=== PATIENT | female | born 1965 | race Caucasian/White ===

== ENCOUNTER 2016-05-06 13:47 | Emergency (ER) | payer MEDICAID ==
[~2016-05-06] VITALS: Ht 144.8 cm; Wt 56.8 kg
[~2016-05-06 13:47] MED LIST: ALBU8.5H IH; BECL8.7A5 IH; CARB200T6 PO; LEVE500T53 PO; TOPI100 PO
[2016-05-06] MEDS ORDERED: PROM25SU61 RC (13:58)
[2016-05-06] MEDS ORDERED: FURO20 PO (13:58)
[2016-05-06] MEDS ORDERED: SODIUM CHLORIDE 0.9% 1,000 ML IV ONE (15:30)
[2016-05-06] MEDS ORDERED: HYDROmorphone 2 MG/ML SYRINGE IVP ONE ×2 (15:30→18:00)
[2016-05-06] MEDS ORDERED: ONDANSETRON HCL 4 MG/2 ML VIAL IVP ONE (15:30)
[2016-05-06] MEDS ORDERED: PHEN12S PR (15:32)
[2016-05-06 16:04] LABS: BASOPHILS % (AUTO) 0.6 % (0.0-2.0); EOSINOPHILS % (AUTO) 3.6 % (1.0-6.0); HEMATOCRIT 40.9 % (36-46); HEMOGLOBIN 13.6 g/dL (12.0-16.0); LYMPHOCYTES # (AUTO) 1.4 K/uL (1.0-4.8); LYMPHOCYTES % (AUTO) 39.6 % (22.0-44.0); MEAN CORPUSCULAR HEMOGLOBIN 30.7 pg (26.0-34.0); MEAN CORPUSCULAR HGB CONC 33.3 G/dL (31.0-37.0); MEAN CORPUSCULAR VOLUME 92 fL (80-100); MONOCYTES # (AUTO) 0.3 K/uL (0.1-1.0); MONOCYTES % (AUTO) 8.3 % (2.0-9.0); NEUTROPHILS # (AUTO) 1.7 K/uL (1.8-7.7); NEUTROPHILS % (AUTO) 47.9 % (40.0-70.0); PLATELET COUNT (AUTO) 288 K/uL (150-450); RED BLOOD CELL COUNT(AUTO) 4.44 MIL/uL (4.00-5.20); RED CELL DISTRIBUTION WIDTH 13.1 % (11.5-14.5); WHITE BLOOD COUNT (AUTO) 3.5 K/uL (4.5-11.0)
[2016-05-06 16:13] LABS: PROTHROMBIN TIME 10.6 SEC (9.4-11.6)
[2016-05-06 16:16] LABS: ANION GAP 10 mmol/L (8-16); CARBON DIOXIDE 25 mmol/L (22-29); CHLORIDE 106 mmol/L (98-107); CREATININE 0.87 mg/dL (0.60-1.30); GLOMERULAR FILTR. RATE CALC > 60 mL/min (>60); POTASSIUM 3.1 mmol/L (3.5-5.1); SODIUM SERUM 141 mmol/L (136-145); UREA NITROGEN, BLOOD 6 mg/dL (7-18)
[2016-05-06 16:21] LABS: ALANINE AMINOTRANSFERASE 18 U/L (12-78); ALBUMIN 3.4 g/dL (3.4-5.0); ASPARTATE AMINOTRANSFERASE 14 U/L (15-37); BILIRUBIN,TOTAL 0.1 mg/dL (0.1-1.0); TOTAL PROTEIN, SERUM 6.7 g/dL (6.4-8.2)
[2016-05-06 16:36] LABS: APPEARANCE,URINE CLEAR (CLEAR); GLUCOSE, URINE (UA) NEGATIVE (NEGATIVE); KETONES,URINE NEGATIVE (NEGATIVE); LEUKOCYTE ESTERASE ,URINE NEGATIVE (NEGATIVE); OCCULT BLOOD,URINE NEGATIVE (NEGATIVE); PH,URINE 8.5 (5.0-8.0); PROTEIN,URINE NEGATIVE (NEGATIVE)
[2016-05-06 16:40] LABS: ADD UA MICROSCOPIC NO
[2016-05-06] MEDS ORDERED: DiphenhydrAMINE HCL 50 MG/ML VIAL IM ONE (16:45)
[2016-05-06 19:14] VITALS: BP 113/81
== END 2016-05-06 19:14 | disposition home or self-care (01) ==
LOC: EMS 13:54
DX: K59.00 Constipation, unspecified (principal); Z88.0 Allergy status to penicillin; Z88.1 Allergy status to other antibiotic agents; Z88.5 Allergy status to narcotic agent; Z88.6 Allergy status to analgesic agent
CPT/HCPCS: 36415; 71010; 74176; 80053; 81003; 83690; 85025; 85610; 85730; 86850; 86900; 86901; 93005; 96361; 96372; 96374; 96375; 96376; 99285; J1170; J1200; J2405; J7030

== ENCOUNTER 2016-05-17 13:53 | Emergency (ER) | payer MEDICAID ==
[~2016-05-17] VITALS: Ht 144.8 cm; Wt 61.4 kg
[~2016-05-17 13:53] MED LIST changes: +FURO20 PO; +PHEN12S PR
[2016-05-17 14:52] LABS: BASOPHILS # (AUTO) 0.02 K/uL (0.00-0.20); BASOPHILS % (AUTO) 0.5 % (0.0-2.0); EOSINOPHILS # (AUTO) 0.22 K/uL (0.00-0.70); EOSINOPHILS % (AUTO) 4.64 % (1.0-6.0); HEMATOCRIT 38.9 % (36-46); HEMOGLOBIN 13.2 g/dL (12.0-16.0); LYMPHOCYTES # (AUTO) 1.5 K/uL (1.0-4.8); LYMPHOCYTES % (AUTO) 30.8 % (22.0-44.0); MEAN CORPUSCULAR HEMOGLOBIN 30.8 pg (26.0-34.0); MEAN CORPUSCULAR VOLUME 90 fL (80-100); MONOCYTES # (AUTO) 0.5 K/uL (0.1-1.0); MONOCYTES % (AUTO) 9.7 % (2.0-9.0); NEUTROPHILS # (AUTO) 2.6 K/uL (1.8-7.7); NEUTROPHILS % (AUTO) 54.3 % (40.0-70.0); PLATELET COUNT (AUTO) 225 K/uL (150-450); RED CELL DISTRIBUTION WIDTH 13.5 % (11.5-14.5); WHITE BLOOD COUNT (AUTO) 4.8 K/uL (4.5-11.0)
[2016-05-17 15:07] LABS: ANION GAP 9 mmol/L (8-16); CARBON DIOXIDE 25 mmol/L (22-29); CHLORIDE 107 mmol/L (98-107); CREATININE 0.77 mg/dL (0.60-1.30); GLOMERULAR FILTR. RATE CALC > 60 mL/min (>60); POTASSIUM 3.7 mmol/L (3.5-5.1); SODIUM SERUM 141 mmol/L (136-145); UREA NITROGEN, BLOOD 23 mg/dL (7-18)
[2016-05-17 15:12] LABS: ALANINE AMINOTRANSFERASE 25 U/L (12-78); ALBUMIN 3.4 g/dL (3.4-5.0); ASPARTATE AMINOTRANSFERASE 14 U/L (15-37); BILIRUBIN,TOTAL 0.2 mg/dL (0.1-1.0); TOTAL PROTEIN, SERUM 6.7 g/dL (6.4-8.2)
[2016-05-17 16:22] LABS: APPEARANCE,URINE CLEAR (CLEAR); GLUCOSE, URINE (UA) NEGATIVE (NEGATIVE); KETONES,URINE NEGATIVE (NEGATIVE); LEUKOCYTE ESTERASE ,URINE NEGATIVE (NEGATIVE); OCCULT BLOOD,URINE NEGATIVE (NEGATIVE); PROTEIN,URINE NEGATIVE (NEGATIVE)
[2016-05-17 16:38] LABS: ADD UA MICROSCOPIC NO
[2016-05-17] MEDS ORDERED: ONDANSETRON HCL 4 MG/2 ML VIAL IVP ONE (17:00)
[2016-05-17] MEDS ORDERED: SODIUM CHLORIDE 0.9% 1,000 ML IV ONE (17:00)
[2016-05-17] MEDS ORDERED: LORazepam 2 MG/ML VIAL IVP ONE (17:00)
[2016-05-17] MEDS ORDERED: LevETIRAcetam 500 MG in DEXTROSE 5%-WATER 100 ML IV ONE (17:00)
[2016-05-17] MEDS ORDERED: TOPIRAMATE 100 MG TABLET PO ONE (17:00)
[2016-05-17] MEDS ORDERED: CarBAMazepine 200 MG TABLET PO ONE (17:00)
[2016-05-17] MEDS: TraMADol HCL 50 MG TABLET PO ONE ×2 (18:33→18:43)
[2016-05-17] MEDS ORDERED: HYDROmorphone 2 MG/ML SYRINGE IVP ONE (19:15)
[2016-05-17] MEDS ORDERED: DiphenhydrAMINE HCL 50 MG/ML VIAL IVP ONE (19:30)
[2016-05-17 19:36] VITALS: BP 112/71
== END 2016-05-17 19:48 | disposition home or self-care (01) ==
LOC: EMS 13:54
DX: G40.909 Epilepsy, unspecified, not intractable, without status epilepticus (principal); R11.2 Nausea with vomiting, unspecified; R10.9 Unspecified abdominal pain; R05 Cough; Z86.14 Personal history of Methicillin resistant Staphylococcus aureus infection; Z88.6 Allergy status to analgesic agent; Z88.5 Allergy status to narcotic agent; Z88.0 Allergy status to penicillin; Z88.2 Allergy status to sulfonamides; Z88.8 Allergy status to other drugs, medicaments and biological substances
CPT/HCPCS: 36415; 80053; 80156; 81003; 83690; 85025; 96361; 96374; 96375; 99284; 99406; J0712; J1170; J1200; J2060; J2405; J7030; J7060

== ENCOUNTER 2016-06-16 18:49 | Emergency (ER) | payer MEDICAID ==
[~2016-06-16] VITALS: Ht 147.3 cm; Wt 59.1 kg
[2016-06-16] MEDS ORDERED: LORazepam 2 MG/ML VIAL IM ONE (19:30)
[2016-06-16 19:48] LABS: BASOPHILS % (AUTO) 0.6 % (0.0-2.0); EOSINOPHILS % (AUTO) 3.3 % (1.0-6.0); HEMATOCRIT 38.1 % (36-46); HEMOGLOBIN 12.6 g/dL (12.0-16.0); LYMPHOCYTES # (AUTO) 1.9 K/uL (1.0-4.8); MEAN CORPUSCULAR HEMOGLOBIN 30.1 pg (26.0-34.0); MEAN CORPUSCULAR HGB CONC 33.1 G/dL (31.0-37.0); MEAN CORPUSCULAR VOLUME 91 fL (80-100); MONOCYTES # (AUTO) 0.4 K/uL (0.1-1.0); MONOCYTES % (AUTO) 7.6 % (2.0-9.0); NEUTROPHILS # (AUTO) 2.9 K/uL (1.8-7.7); NEUTROPHILS % (AUTO) 53.5 % (40.0-70.0); PLATELET COUNT (AUTO) 230 K/uL (150-450); RED BLOOD CELL COUNT(AUTO) 4.19 MIL/uL (4.00-5.20); RED CELL DISTRIBUTION WIDTH 12.6 % (11.5-14.5); WHITE BLOOD COUNT (AUTO) 5.4 K/uL (4.5-11.0)
[2016-06-16 19:53] LABS: ANION GAP 11 mmol/L (8-16); CALCIUM, TOTAL 8.2 mg/dL (8.8-10.5); CARBON DIOXIDE 25 mmol/L (22-29); CHLORIDE 107 mmol/L (98-107); CREATININE 1.11 mg/dL (0.60-1.30); GLOMERULAR FILTR. RATE CALC 52 mL/min (>60); POTASSIUM 3.8 mmol/L (3.5-5.1); SODIUM SERUM 143 mmol/L (136-145); UREA NITROGEN, BLOOD 18 mg/dL (7-18)
[2016-06-16 20:01] LABS: ALANINE AMINOTRANSFERASE 12 U/L (12-78); ALBUMIN 3.5 g/dL (3.4-5.0); ASPARTATE AMINOTRANSFERASE 17 U/L (15-37); BILIRUBIN,TOTAL 0.1 mg/dL (0.1-1.0); TOTAL PROTEIN, SERUM 6.7 g/dL (6.4-8.2)
[2016-06-16] MEDS ORDERED: ONDANSETRON HCL 4 MG/2 ML VIAL IM ONE (20:15)
[2016-06-16 20:32] LABS: APPEARANCE,URINE CLEAR (CLEAR); GLUCOSE, URINE (UA) NEGATIVE (NEGATIVE); KETONES,URINE NEGATIVE (NEGATIVE); LEUKOCYTE ESTERASE ,URINE NEGATIVE (NEGATIVE); OCCULT BLOOD,URINE NEGATIVE (NEGATIVE); PH,URINE 8.5 (5.0-8.0); PROTEIN,URINE NEGATIVE (NEGATIVE)
[2016-06-16 20:50] LABS: RBC,URINE None Seen /HPF (0-2); WBC,URINE None Seen /HPF (0-5)
[2016-06-16 21:02] VITALS: BP 99/62
[2016-06-16] MEDS ORDERED: DiphenhydrAMINE HCL 50 MG/ML VIAL IM ONE (21:15)
== END 2016-06-16 21:40 | disposition home or self-care (01) ==
LOC: EMS 18:50
DX: G40.909 Epilepsy, unspecified, not intractable, without status epilepticus (principal); Z88.6 Allergy status to analgesic agent; Z88.5 Allergy status to narcotic agent; Z88.0 Allergy status to penicillin; Z88.2 Allergy status to sulfonamides; Z88.8 Allergy status to other drugs, medicaments and biological substances
CPT/HCPCS: 36415; 80053; 80307; 81001; 85025; 96372; 99284; G0480; J1200; J2060; J2405

== ENCOUNTER 2016-07-07 08:52 | Emergency (ER) | payer MEDICAID ==
[~2016-07-07] VITALS: Ht 144.8 cm; Wt 56.4 kg
[2016-07-07] MEDS ORDERED: CARV3.1262 PO (09:04)
[2016-07-07 09:53] LABS: APPEARANCE,URINE CLEAR (CLEAR); GLUCOSE, URINE (UA) NEGATIVE (NEGATIVE); KETONES,URINE NEGATIVE (NEGATIVE); LEUKOCYTE ESTERASE ,URINE NEGATIVE (NEGATIVE); OCCULT BLOOD,URINE NEGATIVE (NEGATIVE); PH,URINE 7.5 (5.0-8.0); PROTEIN,URINE NEGATIVE (NEGATIVE)
[2016-07-07 09:54] LABS: ADD UA MICROSCOPIC NO
[2016-07-07 11:44] LABS: BASOPHILS % (AUTO) 0.1 % (0.0-2.0); EOSINOPHILS % (AUTO) 0.4 % (1.0-6.0); HEMATOCRIT 36.9 % (36-46); HEMOGLOBIN 12.3 g/dL (12.0-16.0); LYMPHOCYTES # (AUTO) 1.1 K/uL (1.0-4.8); LYMPHOCYTES % (AUTO) 19.6 % (22.0-44.0); MEAN CORPUSCULAR HEMOGLOBIN 29.8 pg (26.0-34.0); MEAN CORPUSCULAR HGB CONC 33.2 G/dL (31.0-37.0); MEAN CORPUSCULAR VOLUME 90 fL (80-100); MONOCYTES # (AUTO) 0.3 K/uL (0.1-1.0); MONOCYTES % (AUTO) 5.6 % (2.0-9.0); NEUTROPHILS % (AUTO) 74.3 % (40.0-70.0); PLATELET COUNT (AUTO) 250 K/uL (150-450); WHITE BLOOD COUNT (AUTO) 5.4 K/uL (4.5-11.0)
[2016-07-07] MEDS: ONDANSETRON HCL 4 MG/2 ML VIAL IVP ONE (11:44)
[2016-07-07] MEDS: LORazepam 2 MG/ML VIAL IVP ONE (11:44)
[2016-07-07] MEDS: LevETIRAcetam 500 MG in DEXTROSE 5%-WATER 100 ML IV ONE (11:45)
[2016-07-07 11:56] LABS: ANION GAP 15 mmol/L (8-16); CALCIUM, TOTAL 8.4 mg/dL (8.8-10.5); CARBON DIOXIDE 18 mmol/L (22-29); CHLORIDE 111 mmol/L (98-107); CREATININE 0.62 mg/dL (0.60-1.30); GLOMERULAR FILTR. RATE CALC > 60 mL/min (>60); POTASSIUM 3.8 mmol/L (3.5-5.1); SODIUM SERUM 144 mmol/L (136-145); UREA NITROGEN, BLOOD 17 mg/dL (7-18)
[2016-07-07 11:59] LABS: PROTHROMBIN TIME 10.5 SEC (9.4-11.6)
[2016-07-07 12:02] LABS: ALANINE AMINOTRANSFERASE 18 U/L (12-78); ALBUMIN 3.3 g/dL (3.4-5.0); ASPARTATE AMINOTRANSFERASE 13 U/L (15-37); BILIRUBIN,TOTAL 0.2 mg/dL (0.1-1.0); CREATINE KINASE, TOTAL 53 U/L (26-192); TOTAL PROTEIN, SERUM 6.7 g/dL (6.4-8.2)
[2016-07-07 12:06] LABS: B-TYPE NATRIURETIC PEPTIDE 48 pg/mL (0-100)
[2016-07-07] MEDS: CarBAMazepine 200 MG TABLET PO ONE (13:03)
[2016-07-07] MEDS: HYDROmorphone 2 MG/ML SYRINGE IVP ONE (13:33)
[2016-07-07] MEDS: DiphenhydrAMINE HCL 50 MG/ML VIAL IVP ONE (14:05)
[2016-07-07 14:42] VITALS: BP 102/63
== END 2016-07-07 15:19 | disposition home or self-care (01) ==
LOC: EMS 08:56
DX: G40.909 Epilepsy, unspecified, not intractable, without status epilepticus (principal); J45.909 Unspecified asthma, uncomplicated; J44.9 Chronic obstructive pulmonary disease, unspecified; Z88.6 Allergy status to analgesic agent; Z88.5 Allergy status to narcotic agent; Z88.0 Allergy status to penicillin; Z88.2 Allergy status to sulfonamides; Z88.8 Allergy status to other drugs, medicaments and biological substances
CPT/HCPCS: 36415; 71010; 80053; 80156; 81003; 82550; 83690; 83880; 84484; 85025; 85610; 85730; 93005; 96365; 96375; 99285; J0712; J1170; J1200; J2060; J2405; J7060

== ENCOUNTER 2016-07-13 09:10 | Emergency (ER) | payer MEDICAID ==
[~2016-07-13] VITALS: Ht 144.8 cm; Wt 61.4 kg
[~2016-07-13 09:10] MED LIST changes: +CARV3.1262 PO; -PHEN12S PR
[2016-07-13] MEDS ORDERED: ONDANSETRON HCL 4 MG/2 ML VIAL IVP ONE (09:30)
[2016-07-13] MEDS ORDERED: LORazepam 2 MG/ML VIAL IVP ONE (09:30)
[2016-07-13] MEDS ORDERED: SODIUM CHLORIDE 0.9% 1,000 ML IV ONE (09:30)
[2016-07-13] MEDS ORDERED: CarBAMazepine 200 MG TABLET PO ONE (10:45)
[2016-07-13 11:30] VITALS: BP 109/63
[2016-07-13] MEDS ORDERED: DiphenhydrAMINE HCL 50 MG/ML VIAL IVP ONE (11:30)
== END 2016-07-13 12:19 | disposition home or self-care (01) ==
LOC: EMS 09:11
DX: G40.909 Epilepsy, unspecified, not intractable, without status epilepticus (principal); R11.2 Nausea with vomiting, unspecified; F41.9 Anxiety disorder, unspecified; J44.9 Chronic obstructive pulmonary disease, unspecified; J45.909 Unspecified asthma, uncomplicated; Z88.0 Allergy status to penicillin; Z88.1 Allergy status to other antibiotic agents; Z88.5 Allergy status to narcotic agent; Z88.6 Allergy status to analgesic agent
CPT/HCPCS: 36415; 70450; 80156; 96361; 96374; 96375; 99285; J1200; J2060; J2405; J7030

== ENCOUNTER 2016-09-06 08:41 | Emergency (ER) | payer MEDICAID ==
[~2016-09-06] VITALS: Ht 144.8 cm; Wt 59.1 kg
[2016-09-06 10:17] LABS: ANION GAP 10 mmol/L (8-16); CALCIUM, TOTAL 9.2 mg/dL (8.8-10.5); CARBON DIOXIDE 25 mmol/L (22-29); CHLORIDE 102 mmol/L (98-107); CREATININE 0.79 mg/dL (0.60-1.30); GLOMERULAR FILTR. RATE CALC > 60 mL/min (>60); POTASSIUM 4.9 mmol/L (3.5-5.1); SODIUM SERUM 137 mmol/L (136-145); UREA NITROGEN, BLOOD 16 mg/dL (7-18)
[2016-09-06 10:20] LABS: BASOPHILS % (AUTO) 0.9 % (0.0-2.0); EOSINOPHILS % (AUTO) 2.2 % (1.0-6.0); HEMATOCRIT 39.7 % (36-46); HEMOGLOBIN 13.5 g/dL (12.0-16.0); LYMPHOCYTES # (AUTO) 1.1 K/uL (1.0-4.8); LYMPHOCYTES % (AUTO) 37.6 % (22.0-44.0); MEAN CORPUSCULAR HEMOGLOBIN 30.4 pg (26.0-34.0); MEAN CORPUSCULAR HGB CONC 34.1 G/dL (31.0-37.0); MEAN CORPUSCULAR VOLUME 89 fL (80-100); MONOCYTES # (AUTO) 0.3 K/uL (0.1-1.0); MONOCYTES % (AUTO) 9.7 % (2.0-9.0); NEUTROPHILS # (AUTO) 1.5 K/uL (1.8-7.7); NEUTROPHILS % (AUTO) 49.6 % (40.0-70.0); PLATELET COUNT (AUTO) 201 K/uL (150-450); RED BLOOD CELL COUNT(AUTO) 4.45 MIL/uL (4.00-5.20); RED CELL DISTRIBUTION WIDTH 13.5 % (11.5-14.5); WHITE BLOOD COUNT (AUTO) 3.1 K/uL (4.5-11.0)
[2016-09-06 10:23] LABS: ALANINE AMINOTRANSFERASE 31 U/L (12-78); ALBUMIN 4.3 g/dL (3.4-5.0); ASPARTATE AMINOTRANSFERASE 33 U/L (15-37); BILIRUBIN,TOTAL 0.5 mg/dL (0.1-1.0)
[2016-09-06] MEDS ORDERED: SODIUM CHLORIDE 0.9% 1,000 ML IV ONE ×2 (10:30→13:15)
[2016-09-06] MEDS ORDERED: LevETIRAcetam 1,000 MG in DEXTROSE 5%-WATER 100 ML IV ONE (10:30)
[2016-09-06] MEDS ORDERED: ONDANSETRON HCL 4 MG/2 ML VIAL IVP ONE (10:30)
[2016-09-06] MEDS ORDERED: LORazepam 2 MG/ML VIAL IVP ONE (10:30)
[2016-09-06 15:15] VITALS: BP 82/57
== END 2016-09-06 15:24 | disposition home or self-care (01) ==
LOC: EMS 08:42
DX: R11.2 Nausea with vomiting, unspecified (principal); J44.9 Chronic obstructive pulmonary disease, unspecified; J45.909 Unspecified asthma, uncomplicated; Z88.0 Allergy status to penicillin; Z88.1 Allergy status to other antibiotic agents; Z88.5 Allergy status to narcotic agent; Z88.8 Allergy status to other drugs, medicaments and biological substances
CPT/HCPCS: 36415; 80053; 80156; 83690; 85025; 96361; 96365; 96375; 99284; J0712; J2060; J2405; J7060; J7030

== ENCOUNTER 2016-10-10 09:37 | Emergency (ER) | payer MEDICAID ==
[~2016-10-10] VITALS: Ht 144.8 cm; Wt 59.1 kg
[2016-10-10] MEDS ORDERED: ONDANSETRON HCL 4 MG/2 ML VIAL IVP ONE ×2 (11:45→14:15)
[2016-10-10] MEDS ORDERED: SODIUM CHLORIDE 0.9% 1,000 ML IV ONE (11:45)
[2016-10-10] MEDS ORDERED: HYDROmorphone 2 MG/ML SYRINGE IVP ONE (11:45)
[2016-10-10] MEDS ORDERED: LORazepam 2 MG/ML VIAL IVP ONE (11:45)
[2016-10-10] MEDS ORDERED: DiphenhydrAMINE HCL 50 MG/ML VIAL IVP ONE ×2 (12:45)
[2016-10-10 13:11] LABS: BASOPHILS % (AUTO) 0.5 % (0.0-2.0); EOSINOPHILS % (AUTO) 1.6 % (1.0-6.0); HEMATOCRIT 37.7 % (36-46); HEMOGLOBIN 13.1 g/dL (12.0-16.0); LYMPHOCYTES # (AUTO) 1.4 K/uL (1.0-4.8); LYMPHOCYTES % (AUTO) 25.8 % (22.0-44.0); MEAN CORPUSCULAR HGB CONC 34.6 G/dL (31.0-37.0); MEAN CORPUSCULAR VOLUME 90 fL (80-100); MONOCYTES # (AUTO) 0.4 K/uL (0.1-1.0); MONOCYTES % (AUTO) 6.6 % (2.0-9.0); NEUTROPHILS # (AUTO) 3.6 K/uL (1.8-7.7); NEUTROPHILS % (AUTO) 65.5 % (40.0-70.0); PLATELET COUNT (AUTO) 168 K/uL (150-450); RED BLOOD CELL COUNT(AUTO) 4.21 MIL/uL (4.00-5.20); WHITE BLOOD COUNT (AUTO) 5.5 K/uL (4.5-11.0)
[2016-10-10 13:35] LABS: ALANINE AMINOTRANSFERASE 23 U/L (12-78); ALBUMIN 3.4 g/dL (3.4-5.0); ANION GAP 9 mmol/L (8-16); ASPARTATE AMINOTRANSFERASE 15 U/L (15-37); BILIRUBIN,TOTAL 0.3 mg/dL (0.1-1.0); CALCIUM, TOTAL 8.7 mg/dL (8.8-10.5); CARBON DIOXIDE 23 mmol/L (22-29); CHLORIDE 111 mmol/L (98-107); CREATININE 0.75 mg/dL (0.60-1.30); GLOMERULAR FILTR. RATE CALC > 60 mL/min (>60); POTASSIUM 3.4 mmol/L (3.5-5.1); SODIUM SERUM 143 mmol/L (136-145); TOTAL PROTEIN, SERUM 6.2 g/dL (6.4-8.2); UREA NITROGEN, BLOOD 16 mg/dL (7-18)
[2016-10-10 13:45] VITALS: BP 112/59
[2016-10-10] MEDS ORDERED: DOXYCYCLINE 100 MG CAPSULE PO ONE (14:00)
[2016-10-10] MEDS ORDERED: CarBAMazepine 200 MG TABLET PO ONE (14:00)
[2016-10-10] MEDS ORDERED: CeFAZolin 1 GM/DEXTROSE 50 ML IV ONE (14:00)
== END 2016-10-10 14:16 | disposition home or self-care (01) ==
LOC: EMS 09:39
DX: G40.909 Epilepsy, unspecified, not intractable, without status epilepticus (principal); L03.113 Cellulitis of right upper limb; J45.909 Unspecified asthma, uncomplicated; J44.9 Chronic obstructive pulmonary disease, unspecified; N18.9 Chronic kidney disease, unspecified; Z86.14 Personal history of Methicillin resistant Staphylococcus aureus infection; Z88.0 Allergy status to penicillin; Z88.6 Allergy status to analgesic agent; Z88.5 Allergy status to narcotic agent; Z88.2 Allergy status to sulfonamides; Z88.8 Allergy status to other drugs, medicaments and biological substances
CPT/HCPCS: 36415; 80053; 80156; 85025; 96361; 96374; 96375; 96376; 99285; J1170; J1200; J2060; J2405; J7030

== ENCOUNTER 2017-03-10 12:58 | Inpatient (IN) | payer MEDICAID ==
[~2017-03-10] VITALS: Ht 144.8 cm; Wt 62.4 kg
[~2017-03-10 12:58] MED LIST changes: -ALBU8.5H IH; +ALBU8.5H8 IH; -TOPI100 PO; +TOPI100T37 PO
[2017-03-10] MEDS ORDERED: LORazepam 1 MG TABLET PO ONE (13:30)
[2017-03-10] MEDS ORDERED: ONDANSETRON HCL 4 MG/2 ML VIAL IVP ONE (13:30)
[2017-03-10] MEDS ORDERED: DiphenhydrAMINE HCL 50 MG/ML VIAL IVP ONE (13:30)
[2017-03-10] MEDS ORDERED: SODIUM CHLORIDE 0.9% 500 ML IV ONE ×2 (13:30→16:00)
[2017-03-10 13:34] LABS: BASOPHILS % (AUTO) 0.6 % (0.0-2.0); EOSINOPHILS % (AUTO) 2.2 % (1.0-6.0); HEMATOCRIT 39.4 % (36-46); HEMOGLOBIN 13.7 g/dL (12.0-16.0); LYMPHOCYTES # (AUTO) 1.5 K/uL (1.0-4.8); LYMPHOCYTES % (AUTO) 43.7 % (22.0-44.0); MEAN CORPUSCULAR HEMOGLOBIN 32.1 pg (26.0-34.0); MEAN CORPUSCULAR HGB CONC 34.7 G/dL (31.0-37.0); MEAN CORPUSCULAR VOLUME 92 fL (80-100); MONOCYTES # (AUTO) 0.4 K/uL (0.1-1.0); MONOCYTES % (AUTO) 12.2 % (2.0-9.0); NEUTROPHILS # (AUTO) 1.4 K/uL (1.8-7.7); NEUTROPHILS % (AUTO) 41.3 % (40.0-70.0); PLATELET COUNT (AUTO) 192 K/uL (150-450); RED BLOOD CELL COUNT(AUTO) 4.27 MIL/uL (4.00-5.20); RED CELL DISTRIBUTION WIDTH 12.9 % (11.5-14.5); WHITE BLOOD COUNT (AUTO) 3.5 K/uL (4.5-11.0)
[2017-03-10] MEDS ORDERED: LORazepam 2 MG/ML VIAL IVP ONE (13:45)
[2017-03-10] MEDS ORDERED: IOVERSOL 350 MG/ML 100 ML VIAL ONE (13:50)
[2017-03-10] MEDS ORDERED: SODIUM CHLORIDE 0.9% 100 ML ONE (13:50)
[2017-03-10 13:51] LABS: ANION GAP 10 mmol/L (8-16); CALCIUM, TOTAL 8.8 mg/dL (8.8-10.5); CARBON DIOXIDE 24 mmol/L (22-29); CHLORIDE 108 mmol/L (98-107); GLOMERULAR FILTR. RATE CALC > 60 mL/min (>60); POTASSIUM 3.6 mmol/L (3.5-5.1); SODIUM SERUM 142 mmol/L (136-145); UREA NITROGEN, BLOOD 15 mg/dL (7-18)
[2017-03-10 13:55] LABS: ALBUMIN 3.4 g/dL (3.4-5.0); ASPARTATE AMINOTRANSFERASE 14 U/L (15-37); BILIRUBIN,TOTAL 0.2 mg/dL (0.1-1.0); TOTAL PROTEIN, SERUM 6.5 g/dL (6.4-8.2)
[2017-03-10 14:05] LABS: ALANINE AMINOTRANSFERASE 25 U/L (12-78)
[2017-03-10] MEDS ORDERED: MORPHINE SULFATE 2 MG/ML SYRINGE IVP ONE (15:00)
[2017-03-10] MEDS ORDERED: CLINDAMYCIN 600 MG/D5% WATER 50 ML IV ONE (15:15)
[2017-03-10] MEDS ORDERED: SODIUM CHLORIDE 0.9% 1,000 ML IV ONE (16:00)
[2017-03-10] MEDS ORDERED: VANCOMYCIN HCL 1 GM/D5% WATER 200 ML IV ONE ×2 (16:00→18:15)
[2017-03-10] MEDS ORDERED: LEVOFLOXACIN 750 MG/D5% WATER 150 ML IV ONE (16:00)
[2017-03-10] MEDS ORDERED: 0.9% SODIUM CHLORIDE 10 ML SYRINGE IVP PRN (16:15)
[2017-03-10] MEDS ORDERED: ONDANSETRON HCL 4 MG/2 ML VIAL IVP PRN (16:15)
[2017-03-10] MEDS ORDERED: PHENYTOIN SODIUM 1,000 MG in SODIUM CHLORIDE 0.9% 150 ML IV ONE (16:15)
[2017-03-10] MEDS ORDERED: MORPHINE SULFATE 2 MG/ML SYRINGE IVP PRN (16:15)
[2017-03-10 18:40] VITALS: BP 116/70
[2017-03-10] MEDS ORDERED: INFLUENZA VIRUS VACCINE QVS 2017-18 (3YR+)/PF 60 MCG/0.5 ML SYRINGE IM ONE (19:00)
[2017-03-10] MEDS ORDERED: PNEUMOCOCCAL VACCINE POLYVALENT 0.5 ML VIAL [PPSV23] IM ONE (19:00)
[2017-03-10] MEDS ORDERED: CefTRIAXone SODIUM 2 GM in DEXTROSE 5%-WATER 50 ML IV SCH (19:00)
[2017-03-10 19:56] VITALS: BP 111/62
[2017-03-10] MEDS: LORazepam 2 MG/ML VIAL IVP PRN (20:03)
[2017-03-10 23:05] VITALS: BP 98/55
[2017-03-10] MEDS: MORPHINE SULFATE 2 MG/ML SYRINGE IVP PRN (23:20)
[2017-03-11] VITALS (7 sets, daily range): BP systolic 94–103; BP diastolic 49–72
[2017-03-11] MEDS ORDERED: VANCOMYCIN HCL 1 GM/D5% WATER 200 ML IV ONE (01:00)
[2017-03-11] MEDS: MetroNIDAZOLE 500 MG/NACL 100 ML IV SCH ×3 (02:57→17:26)
[2017-03-11] MEDS: LORazepam 2 MG/ML VIAL IVP PRN ×2 (03:36→10:06)
[2017-03-11 06:41] LABS: BASOPHILS # (AUTO) 0.02 K/uL (0.00-0.20); BASOPHILS % (AUTO) 0.5 % (0.0-2.0); EOSINOPHILS # (AUTO) 0.08 K/uL (0.00-0.70); EOSINOPHILS % (AUTO) 2.37 % (1.0-6.0); HEMATOCRIT 35.5 % (36-46); LYMPHOCYTES # (AUTO) 1.3 K/uL (1.0-4.8); LYMPHOCYTES % (AUTO) 37.2 % (22.0-44.0); MEAN CORPUSCULAR HEMOGLOBIN 31.6 pg (26.0-34.0); MEAN CORPUSCULAR HGB CONC 33.7 G/dL (31.0-37.0); MEAN CORPUSCULAR VOLUME 94 fL (80-100); MONOCYTES # (AUTO) 0.4 K/uL (0.1-1.0); NEUTROPHILS # (AUTO) 1.7 K/uL (1.8-7.7); NEUTROPHILS % (AUTO) 48.9 % (40.0-70.0); PLATELET COUNT (AUTO) 155 K/uL (150-450); RED BLOOD CELL COUNT(AUTO) 3.79 MIL/uL (4.00-5.20); RED CELL DISTRIBUTION WIDTH 13.2 % (11.5-14.5); WHITE BLOOD COUNT (AUTO) 3.5 K/uL (4.5-11.0)
[2017-03-11 06:53] LABS: ALANINE AMINOTRANSFERASE 19 U/L (12-78); ALBUMIN 2.4 g/dL (3.4-5.0); ANION GAP 8 mmol/L (8-16); ASPARTATE AMINOTRANSFERASE 9 U/L (15-37); BILIRUBIN,TOTAL 0.2 mg/dL (0.1-1.0); CALCIUM, TOTAL 7.9 mg/dL (8.8-10.5); CARBON DIOXIDE 21 mmol/L (22-29); CHLORIDE 112 mmol/L (98-107); CREATININE 0.76 mg/dL (0.60-1.30); GLOMERULAR FILTR. RATE CALC > 60 mL/min (>60); POTASSIUM 3.6 mmol/L (3.5-5.1); SODIUM SERUM 141 mmol/L (136-145); TOTAL PROTEIN, SERUM 4.8 g/dL (6.4-8.2); UREA NITROGEN, BLOOD 9 mg/dL (7-18)
[2017-03-11] MEDS: VANCOMYCIN HCL 750 MG in DEXTROSE 5%-WATER 150 ML IV SCH ×2 (08:02→15:37)
[2017-03-11 08:30] LABS: ERYTHROCYTE SEDIMENTATION RATE 5 MM/HR (0-20)
[2017-03-11] MEDS: CefTRIAXone SODIUM 2 GM in DEXTROSE 5%-WATER 50 ML IV SCH ×2 (09:50→20:18)
[2017-03-11] MEDS: TOPIRAMATE 100 MG TABLET PO SCH ×2 (10:30→20:20)
[2017-03-11] MEDS: CarBAMazepine 200 MG TABLET PO SCH ×2 (10:30→20:20)
[2017-03-11] MEDS: LevETIRAcetam 500 MG TABLET PO SCH ×2 (10:33→20:20)
[2017-03-11] MEDS: MORPHINE SULFATE 2 MG/ML SYRINGE IVP PRN (12:43)
[2017-03-11] MEDS ORDERED: SODIUM CHLORIDE 0.9% 100 ML ONE (20:26)
[2017-03-12] MEDS: VANCOMYCIN HCL 750 MG in DEXTROSE 5%-WATER 150 ML IV SCH (00:47)
[2017-03-12 00:57] VITALS: BP 90/55
[2017-03-12] MEDS ORDERED: SODIUM CHLORIDE 0.9% 100 ML ONE ×2 (01:02→09:44)
[2017-03-12] MEDS: MetroNIDAZOLE 500 MG/NACL 100 ML IV SCH ×3 (03:04→18:41)
[2017-03-12 05:28] VITALS: BP 88/49
[2017-03-12] MEDS ORDERED: SODIUM CHLORIDE 0.9% 0 ML IV ONE (06:10)
[2017-03-12 06:13] LABS: BASOPHILS % (AUTO) 0.8 % (0.0-2.0); HEMATOCRIT 35.4 % (36-46); HEMOGLOBIN 12.3 g/dL (12.0-16.0); LYMPHOCYTES % (AUTO) 34.2 % (22.0-44.0); MEAN CORPUSCULAR HGB CONC 34.8 G/dL (31.0-37.0); MEAN CORPUSCULAR VOLUME 92 fL (80-100); MONOCYTES # (AUTO) 0.3 K/uL (0.1-1.0); NEUTROPHILS # (AUTO) 1.4 K/uL (1.8-7.7); PLATELET COUNT (AUTO) 155 K/uL (150-450); RED BLOOD CELL COUNT(AUTO) 3.84 MIL/uL (4.00-5.20); RED CELL DISTRIBUTION WIDTH 12.5 % (11.5-14.5); WHITE BLOOD COUNT (AUTO) 2.8 K/uL (4.5-11.0)
[2017-03-12] MEDS ORDERED: SODIUM CHLORIDE 0.9% 250 ML IV ONE (06:15)
[2017-03-12 06:34] LABS: ANION GAP 6 mmol/L (8-16); CALCIUM, TOTAL 8.1 mg/dL (8.8-10.5); CARBON DIOXIDE 24 mmol/L (22-29); CHLORIDE 111 mmol/L (98-107); CREATININE 0.64 mg/dL (0.60-1.30); GLOMERULAR FILTR. RATE CALC > 60 mL/min (>60); POTASSIUM 3.7 mmol/L (3.5-5.1); SODIUM SERUM 141 mmol/L (136-145); UREA NITROGEN, BLOOD 14 mg/dL (7-18)
[2017-03-12 07:42] VITALS: BP 85/55
[2017-03-12] MEDS: LevETIRAcetam 500 MG TABLET PO SCH ×2 (07:52→21:04)
[2017-03-12] MEDS: TOPIRAMATE 100 MG TABLET PO SCH ×2 (07:52→21:04)
[2017-03-12] MEDS: CarBAMazepine 200 MG TABLET PO SCH ×2 (07:52→21:04)
[2017-03-12] MEDS: LORazepam 2 MG/ML VIAL IVP PRN ×4 (07:54→23:38)
[2017-03-12] MEDS: CefTRIAXone SODIUM 2 GM in DEXTROSE 5%-WATER 50 ML IV SCH ×2 (09:48→21:04)
[2017-03-12] MEDS: VANCOMYCIN HCL 1 GM/D5% WATER 200 ML IV SCH ×3 (09:50→23:38)
[2017-03-12 10:58] VITALS: BP 91/53
[2017-03-12] MEDS ORDERED: HYDROCODONE/ACETAMINOPHEN 5-325 MG TABLET PO PRN (15:45)
[2017-03-12 16:16] VITALS: BP 101/45
[2017-03-12 20:10] VITALS: BP 90/54
[2017-03-12] MEDS ORDERED: SODIUM CHLORIDE 0.9% 500 ML IV ONE (23:29)
[2017-03-13] VITALS (11 sets, daily range): BP systolic 91–143; BP diastolic 54–100
[2017-03-13] MEDS: MetroNIDAZOLE 500 MG/NACL 100 ML IV SCH ×4 (01:17→19:46)
[2017-03-13 06:58] LABS: BASOPHILS # (AUTO) 0.03 K/uL (0.00-0.20); BASOPHILS % (AUTO) 0.7 % (0.0-2.0); EOSINOPHILS # (AUTO) 0.12 K/uL (0.00-0.70); EOSINOPHILS % (AUTO) 2.87 % (1.0-6.0); HEMATOCRIT 36.3 % (36-46); LYMPHOCYTES % (AUTO) 24.6 % (22.0-44.0); MEAN CORPUSCULAR HEMOGLOBIN 31.1 pg (26.0-34.0); MEAN CORPUSCULAR VOLUME 94 fL (80-100); MONOCYTES # (AUTO) 0.4 K/uL (0.1-1.0); NEUTROPHILS # (AUTO) 2.6 K/uL (1.8-7.7); NEUTROPHILS % (AUTO) 62.8 % (40.0-70.0); PLATELET COUNT (AUTO) 155 K/uL (150-450); RED BLOOD CELL COUNT(AUTO) 3.86 MIL/uL (4.00-5.20); RED CELL DISTRIBUTION WIDTH 12.8 % (11.5-14.5); WHITE BLOOD COUNT (AUTO) 4.1 K/uL (4.5-11.0)
[2017-03-13 07:11] LABS: ANION GAP 9 mmol/L (8-16); CALCIUM, TOTAL 8.3 mg/dL (8.8-10.5); CARBON DIOXIDE 22 mmol/L (22-29); CHLORIDE 110 mmol/L (98-107); CREATININE 0.68 mg/dL (0.60-1.30); GLOMERULAR FILTR. RATE CALC > 60 mL/min (>60); POTASSIUM 3.9 mmol/L (3.5-5.1); SODIUM SERUM 141 mmol/L (136-145); UREA NITROGEN, BLOOD 15 mg/dL (7-18)
[2017-03-13] MEDS: VANCOMYCIN HCL 1 GM/D5% WATER 200 ML IV SCH ×3 (09:03→23:52)
[2017-03-13] MEDS: TOPIRAMATE 100 MG TABLET PO SCH ×2 (09:04→20:42)
[2017-03-13] MEDS: CarBAMazepine 200 MG TABLET PO SCH ×2 (09:04→20:42)
[2017-03-13] MEDS: LevETIRAcetam 500 MG TABLET PO SCH ×2 (09:05→20:42)
[2017-03-13] MEDS: LORazepam 2 MG/ML VIAL IVP PRN ×3 (09:07→16:43)
[2017-03-13 09:24] LABS: ERYTHROCYTE SEDIMENTATION RATE 8 MM/HR (0-20)
[2017-03-13] MEDS: CefTRIAXone SODIUM 2 GM in DEXTROSE 5%-WATER 50 ML IV SCH ×2 (11:20→21:37)
[2017-03-13] MEDS: MORPHINE SULFATE 2 MG/ML SYRINGE IVP PRN ×2 (14:58→23:54)
[2017-03-13] MEDS ORDERED: ALBUMIN HUMAN 25%-12.5GM/50ML 50 ML IV PRN (20:45)
[2017-03-14] MEDS ORDERED: SODIUM CHLORIDE 0.9% 250 ML IV ONE (03:11)
[2017-03-14] MEDS: MetroNIDAZOLE 500 MG/NACL 100 ML IV SCH ×3 (03:20→17:17)
[2017-03-14 05:24] VITALS: BP 119/62
[2017-03-14 06:20] LABS: ANION GAP 8 mmol/L (8-16); CALCIUM, TOTAL 8.4 mg/dL (8.8-10.5); CARBON DIOXIDE 24 mmol/L (22-29); CHLORIDE 109 mmol/L (98-107); GLOMERULAR FILTR. RATE CALC > 60 mL/min (>60); POTASSIUM 3.7 mmol/L (3.5-5.1); SODIUM SERUM 141 mmol/L (136-145); UREA NITROGEN, BLOOD 19 mg/dL (7-18)
[2017-03-14 07:13] VITALS: BP 110/56
[2017-03-14] MEDS: LevETIRAcetam 500 MG TABLET PO SCH ×2 (08:21→20:34)
[2017-03-14] MEDS: MORPHINE SULFATE 2 MG/ML SYRINGE IVP PRN ×4 (08:21→21:21)
[2017-03-14] MEDS: TOPIRAMATE 100 MG TABLET PO SCH ×2 (08:21→20:35)
[2017-03-14] MEDS: CarBAMazepine 200 MG TABLET PO SCH ×2 (08:21→20:34)
[2017-03-14] MEDS: VANCOMYCIN HCL 1 GM/D5% WATER 200 ML IV SCH ×2 (08:22→14:53)
[2017-03-14] MEDS ORDERED: LORazepam 2 MG/ML VIAL IM ONE (10:15)
[2017-03-14] MEDS ORDERED: LORazepam 2 MG/ML VIAL IVP ONE (10:15)
[2017-03-14] MEDS: CefTRIAXone SODIUM 2 GM in DEXTROSE 5%-WATER 50 ML IV SCH ×2 (10:17→20:34)
[2017-03-14 11:11] VITALS: BP 129/69
[2017-03-14] MEDS: LORazepam 2 MG/ML VIAL IVP PRN (14:55)
[2017-03-14 16:56] VITALS: BP 121/57
[2017-03-14 19:46] VITALS: BP 116/51
[2017-03-15 00:29] VITALS: BP 110/49
[2017-03-15] MEDS: MetroNIDAZOLE 500 MG/NACL 100 ML IV SCH ×3 (01:19→21:32)
[2017-03-15] MEDS: MORPHINE SULFATE 2 MG/ML SYRINGE IVP PRN ×6 (01:19→21:30)
[2017-03-15] MEDS: VANCOMYCIN HCL 1 GM/D5% WATER 200 ML IV SCH ×3 (01:37→17:21)
[2017-03-15 04:20] VITALS: BP 107/55
[2017-03-15 06:43] LABS: ANION GAP 7 mmol/L (8-16); CALCIUM, TOTAL 8.3 mg/dL (8.8-10.5); CARBON DIOXIDE 24 mmol/L (22-29); CHLORIDE 109 mmol/L (98-107); CREATININE 0.73 mg/dL (0.60-1.30); GLOMERULAR FILTR. RATE CALC > 60 mL/min (>60); POTASSIUM 3.6 mmol/L (3.5-5.1); SODIUM SERUM 140 mmol/L (136-145); UREA NITROGEN, BLOOD 16 mg/dL (7-18)
[2017-03-15 07:34] VITALS: BP 127/56
[2017-03-15] MEDS: LevETIRAcetam 500 MG TABLET PO SCH ×2 (08:41→21:28)
[2017-03-15] MEDS: CarBAMazepine 200 MG TABLET PO SCH ×2 (08:41→21:29)
[2017-03-15] MEDS: TOPIRAMATE 100 MG TABLET PO SCH ×2 (08:42→21:28)
[2017-03-15] MEDS: CefTRIAXone SODIUM 2 GM in DEXTROSE 5%-WATER 50 ML IV SCH ×2 (10:54→21:32)
[2017-03-15 11:15] VITALS: BP 98/55
[2017-03-15 15:24] VITALS: BP 110/53
[2017-03-15] MEDS: TOBRAMYCIN/DEXAMETHASONE 5 ML OPHTHALMIC SUSPENSION OS SCH ×4 (15:46→21:29)
[2017-03-15] MEDS: LORazepam 2 MG/ML VIAL IVP PRN (17:49)
[2017-03-15 19:42] VITALS: BP 106/52
[2017-03-16] VITALS (8 sets, daily range): BP systolic 103–122; BP diastolic 53–62
[2017-03-16] MEDS: VANCOMYCIN HCL 1 GM/D5% WATER 200 ML IV SCH ×2 (00:44→08:08)
[2017-03-16] MEDS: MORPHINE SULFATE 2 MG/ML SYRINGE IVP PRN ×5 (00:44→21:47)
[2017-03-16] MEDS: LORazepam 2 MG/ML VIAL IVP PRN ×5 (02:33→23:31)
[2017-03-16 07:21] LABS: BASOPHILS # (AUTO) 0.03 K/uL (0.00-0.20); BASOPHILS % (AUTO) 0.8 % (0.0-2.0); EOSINOPHILS # (AUTO) 0.11 K/uL (0.00-0.70); EOSINOPHILS % (AUTO) 3.42 % (1.0-6.0); HEMOGLOBIN 12.3 g/dL (12.0-16.0); LYMPHOCYTES # (AUTO) 1.2 K/uL (1.0-4.8); LYMPHOCYTES % (AUTO) 35.5 % (22.0-44.0); MEAN CORPUSCULAR HEMOGLOBIN 31.5 pg (26.0-34.0); MEAN CORPUSCULAR HGB CONC 34.1 G/dL (31.0-37.0); MEAN CORPUSCULAR VOLUME 92 fL (80-100); MONOCYTES # (AUTO) 0.3 K/uL (0.1-1.0); MONOCYTES % (AUTO) 10.4 % (2.0-9.0); NEUTROPHILS # (AUTO) 1.7 K/uL (1.8-7.7); NEUTROPHILS % (AUTO) 49.9 % (40.0-70.0); PLATELET COUNT (AUTO) 171 K/uL (150-450); RED BLOOD CELL COUNT(AUTO) 3.89 MIL/uL (4.00-5.20); RED CELL DISTRIBUTION WIDTH 12.8 % (11.5-14.5); WHITE BLOOD COUNT (AUTO) 3.3 K/uL (4.5-11.0)
[2017-03-16 07:33] LABS: ANION GAP 6 mmol/L (8-16); CALCIUM, TOTAL 8.3 mg/dL (8.8-10.5); CARBON DIOXIDE 26 mmol/L (22-29); CHLORIDE 109 mmol/L (98-107); CREATININE 0.67 mg/dL (0.60-1.30); GLOMERULAR FILTR. RATE CALC > 60 mL/min (>60); POTASSIUM 3.7 mmol/L (3.5-5.1); SODIUM SERUM 141 mmol/L (136-145); UREA NITROGEN, BLOOD 16 mg/dL (7-18)
[2017-03-16] MEDS: TOBRAMYCIN/DEXAMETHASONE 5 ML OPHTHALMIC SUSPENSION OS SCH ×4 (08:08→21:31)
[2017-03-16] MEDS: MetroNIDAZOLE 500 MG TABLET PO SCH ×3 (08:09→21:27)
[2017-03-16] MEDS: LevETIRAcetam 500 MG TABLET PO SCH ×2 (08:09→21:27)
[2017-03-16] MEDS: CarBAMazepine 200 MG TABLET PO SCH ×2 (08:09→21:27)
[2017-03-16] MEDS: TOPIRAMATE 100 MG TABLET PO SCH ×2 (08:09→21:28)
[2017-03-16] MEDS: CefTRIAXone SODIUM 2 GM in DEXTROSE 5%-WATER 50 ML IV SCH ×2 (10:30→21:32)
[2017-03-16] MEDS ORDERED: SODIUM CHLORIDE 0.9% 250 ML IV ONE (21:17)
[2017-03-17] VITALS (8 sets, daily range): BP systolic 115–147; BP diastolic 55–66
[2017-03-17] MEDS: MORPHINE SULFATE 2 MG/ML SYRINGE IVP PRN ×5 (01:57→21:05)
[2017-03-17] MEDS: LORazepam 2 MG/ML VIAL IVP PRN ×6 (03:10→22:18)
[2017-03-17] MEDS: VANCOMYCIN HCL 1 GM/D5% WATER 200 ML IV SCH ×2 (07:55→19:35)
[2017-03-17] MEDS: LevETIRAcetam 500 MG TABLET PO SCH ×2 (07:56→21:03)
[2017-03-17] MEDS: TOBRAMYCIN/DEXAMETHASONE 5 ML OPHTHALMIC SUSPENSION OS SCH ×4 (07:56→21:02)
[2017-03-17] MEDS: MetroNIDAZOLE 500 MG TABLET PO SCH ×3 (07:57→21:03)
[2017-03-17] MEDS: TOPIRAMATE 100 MG TABLET PO SCH ×2 (07:58→21:03)
[2017-03-17] MEDS: CarBAMazepine 200 MG TABLET PO SCH ×2 (07:59→21:03)
[2017-03-17 08:16] LABS: ANION GAP 8 mmol/L (8-16); CALCIUM, TOTAL 8.5 mg/dL (8.8-10.5); CARBON DIOXIDE 24 mmol/L (22-29); CHLORIDE 108 mmol/L (98-107); CREATININE 0.72 mg/dL (0.60-1.30); GLOMERULAR FILTR. RATE CALC > 60 mL/min (>60); POTASSIUM 4.1 mmol/L (3.5-5.1); SODIUM SERUM 140 mmol/L (136-145); UREA NITROGEN, BLOOD 22 mg/dL (7-18)
[2017-03-17 09:22] LABS: PROTHROMBIN TIME 10.5 SEC (9.4-11.6)
[2017-03-17] MEDS: CefTRIAXone SODIUM 2 GM in DEXTROSE 5%-WATER 50 ML IV SCH ×2 (09:58→21:02)
[2017-03-17] MEDS ORDERED: HEPARIN SODIUM 1000 UNITS/NS 500 ML ONE (11:29)
[2017-03-18] VITALS (7 sets, daily range): BP systolic 114–137; BP diastolic 51–58
[2017-03-18] MEDS: MORPHINE SULFATE 2 MG/ML SYRINGE IVP PRN ×6 (01:16→23:59)
[2017-03-18] MEDS: LORazepam 2 MG/ML VIAL IVP PRN ×5 (03:29→20:42)
[2017-03-18 06:32] LABS: BASOPHILS % (AUTO) 0.7 % (0.0-2.0); EOSINOPHILS % (AUTO) 2.4 % (1.0-6.0); HEMATOCRIT 33.8 % (36-46); HEMOGLOBIN 11.8 g/dL (12.0-16.0); LYMPHOCYTES # (AUTO) 1.4 K/uL (1.0-4.8); LYMPHOCYTES % (AUTO) 34.2 % (22.0-44.0); MEAN CORPUSCULAR HEMOGLOBIN 32.2 pg (26.0-34.0); MEAN CORPUSCULAR HGB CONC 34.7 G/dL (31.0-37.0); MEAN CORPUSCULAR VOLUME 93 fL (80-100); MONOCYTES # (AUTO) 0.4 K/uL (0.1-1.0); MONOCYTES % (AUTO) 10.2 % (2.0-9.0); NEUTROPHILS # (AUTO) 2.1 K/uL (1.8-7.7); NEUTROPHILS % (AUTO) 52.5 % (40.0-70.0); PLATELET COUNT (AUTO) 196 K/uL (150-450); RED BLOOD CELL COUNT(AUTO) 3.65 MIL/uL (4.00-5.20); RED CELL DISTRIBUTION WIDTH 12.9 % (11.5-14.5)
[2017-03-18 06:51] LABS: ANION GAP 7 mmol/L (8-16); CALCIUM, TOTAL 8.4 mg/dL (8.8-10.5); CARBON DIOXIDE 26 mmol/L (22-29); CHLORIDE 108 mmol/L (98-107); CREATININE 0.66 mg/dL (0.60-1.30); GLOMERULAR FILTR. RATE CALC > 60 mL/min (>60); POTASSIUM 3.9 mmol/L (3.5-5.1); SODIUM SERUM 141 mmol/L (136-145); UREA NITROGEN, BLOOD 21 mg/dL (7-18)
[2017-03-18] MEDS: VANCOMYCIN HCL 1 GM/D5% WATER 200 ML IV SCH ×2 (08:01→20:39)
[2017-03-18] MEDS: CarBAMazepine 200 MG TABLET PO SCH ×2 (08:02→20:38)
[2017-03-18] MEDS: LevETIRAcetam 500 MG TABLET PO SCH ×2 (08:02→20:38)
[2017-03-18] MEDS: TOBRAMYCIN/DEXAMETHASONE 5 ML OPHTHALMIC SUSPENSION OS SCH ×4 (08:02→20:52)
[2017-03-18] MEDS: MetroNIDAZOLE 500 MG TABLET PO SCH ×3 (08:03→20:38)
[2017-03-18] MEDS: TOPIRAMATE 100 MG TABLET PO SCH ×2 (08:04→20:38)
[2017-03-18] MEDS: CefTRIAXone SODIUM 2 GM in DEXTROSE 5%-WATER 50 ML IV SCH ×2 (10:40→23:28)
[2017-03-19 00:18] VITALS: BP 124/58
[2017-03-19] MEDS: LORazepam 2 MG/ML VIAL IVP PRN ×3 (01:38→12:34)
[2017-03-19] MEDS: MORPHINE SULFATE 2 MG/ML SYRINGE IVP PRN ×3 (05:36→13:57)
[2017-03-19 06:01] VITALS: BP 114/64
[2017-03-19] MEDS: TOBRAMYCIN/DEXAMETHASONE 5 ML OPHTHALMIC SUSPENSION OS SCH ×2 (07:50→13:57)
[2017-03-19] MEDS: VANCOMYCIN HCL 1 GM/D5% WATER 200 ML IV SCH (07:50)
[2017-03-19] MEDS: LevETIRAcetam 500 MG TABLET PO SCH (07:51)
[2017-03-19] MEDS: MetroNIDAZOLE 500 MG TABLET PO SCH (07:51)
[2017-03-19] MEDS: CarBAMazepine 200 MG TABLET PO SCH (07:52)
[2017-03-19] MEDS: TOPIRAMATE 100 MG TABLET PO SCH (07:52)
[2017-03-19 08:16] VITALS: BP 117/62
[2017-03-19 08:27] LABS: ANION GAP 8 mmol/L (8-16); CALCIUM, TOTAL 8.5 mg/dL (8.8-10.5); CARBON DIOXIDE 22 mmol/L (22-29); CHLORIDE 107 mmol/L (98-107); CREATININE 0.74 mg/dL (0.60-1.30); GLOMERULAR FILTR. RATE CALC > 60 mL/min (>60); POTASSIUM 3.9 mmol/L (3.5-5.1); SODIUM SERUM 137 mmol/L (136-145); UREA NITROGEN, BLOOD 20 mg/dL (7-18)
[2017-03-19] MEDS ORDERED: ONDANSETRON HCL 4 MG/2 ML VIAL IVP PRN (08:45)
[2017-03-19] MEDS ORDERED: DiphenhydrAMINE HCL 50 MG/ML VIAL IM PRN (08:45)
[2017-03-19] MEDS ORDERED: DiphenhydrAMINE HCL 25 MG CAPSULE PO PRN (09:00)
[2017-03-19 09:34] VITALS: BP 128/45
[2017-03-19] MEDS: CefTRIAXone SODIUM 2 GM in DEXTROSE 5%-WATER 50 ML IV SCH (11:28)
[2017-03-19 11:48] VITALS: BP 115/62
[2017-03-19] MEDS ORDERED: TOBRDOS OU (12:49)
[2017-03-19] MEDS ORDERED: METR500 PO (12:51)
[2017-03-19] MEDS ORDERED: DOXY100C PO (12:53)
[2017-03-19] MEDS ORDERED: CEFU250T87 PO (12:54)
[2017-03-19 13:51] VITALS: BP 127/62
[2017-03-19] MEDS ORDERED: OXYGEN THERAPY IH SCH (20:00)
[2017-03-20] MEDS ORDERED: DOXY100C PO (05:09)
[2017-03-20] MEDS ORDERED: CEFU250T87 PO (05:09)
== END 2017-03-19 14:30 | disposition home or self-care (01) | DRG 383 ==
LOC: EMS 12:59 → 5S 15:50
PROVIDERS: ADMIT Internal Medicine; ATTEND Internal Medicine
PROC: 3E0234Z Introduction of Serum, Toxoid and Vaccine into Muscle, Percutaneous Approach (ICD-10-PCS; 2017-03-15)
PROC: 02HV33Z Insertion of Infusion Device into Superior Vena Cava, Percutaneous Approach (ICD-10-PCS; principal; 2017-03-16)
PROC: B548ZZA Ultrasonography of Superior Vena Cava, Guidance (ICD-10-PCS; 2017-03-16)
DX: L03.213 Periorbital cellulitis (principal); I42.9 Cardiomyopathy, unspecified; G40.802 Other epilepsy, not intractable, without status epilepticus; F41.9 Anxiety disorder, unspecified; J44.9 Chronic obstructive pulmonary disease, unspecified; H54.7 Unspecified visual loss; N18.9 Chronic kidney disease, unspecified; R32 Unspecified urinary incontinence; Z86.14 Personal history of Methicillin resistant Staphylococcus aureus infection; Z88.0 Allergy status to penicillin; Z23 Encounter for immunization; Z88.5 Allergy status to narcotic agent; Z88.2 Allergy status to sulfonamides; Z88.8 Allergy status to other drugs, medicaments and biological substances; Z79.899 Other long term (current) drug therapy
CPT/HCPCS: 36245; 36569; 70450; 70487; 70551; 76937; 82308; 83735; 85651; 86140; 87040; 90471; 95816; 96365; 96366; 96367; 96368; 96375; 99285; G0480; G0482; J0696; J1165; J1200; J1644; J1956; J2060; J2270; J2405; J3370; J3490; J7030; J7040; J7050; J7060

== ENCOUNTER 2017-03-20 02:24 | Emergency (ER) | payer MEDICAID ==
[~2017-03-20] VITALS: Ht 144.8 cm; Wt 56.8 kg
[~2017-03-20 02:24] MED LIST changes: +CEFU250T87 PO; +DOXY100C PO; +METR500 PO; +TOBRDOS OU
[2017-03-20] MEDS ORDERED: MetroNIDAZOLE 750 MG/NACL 150 ML IV ONE (04:45)
[2017-03-20] MEDS ORDERED: CefTRIAXone 1 GM/DEXTROSE 50 ML IV ONE (04:45)
[2017-03-20] MEDS ORDERED: DOXYCYCLINE 100 MG CAPSULE PO ONE (04:45)
[2017-03-20] MEDS ORDERED: DOXY100C PO (05:09)
[2017-03-20] MEDS ORDERED: CEFU250T87 PO (05:09)
[2017-03-20 05:32] LABS: BASOPHILS # (AUTO) 0.02 K/uL (0.00-0.20); BASOPHILS % (AUTO) 0.3 % (0.0-2.0); EOSINOPHILS # (AUTO) 0.04 K/uL (0.00-0.70); EOSINOPHILS % (AUTO) 0.56 % (1.0-6.0); HEMATOCRIT 41.7 % (36-46); HEMOGLOBIN 13.9 g/dL (12.0-16.0); LYMPHOCYTES # (AUTO) 1.5 K/uL (1.0-4.8); LYMPHOCYTES % (AUTO) 22.3 % (22.0-44.0); MEAN CORPUSCULAR HEMOGLOBIN 31.5 pg (26.0-34.0); MEAN CORPUSCULAR HGB CONC 33.4 G/dL (31.0-37.0); MEAN CORPUSCULAR VOLUME 94 fL (80-100); MONOCYTES # (AUTO) 0.5 K/uL (0.1-1.0); NEUTROPHILS # (AUTO) 4.6 K/uL (1.8-7.7); NEUTROPHILS % (AUTO) 69.8 % (40.0-70.0); PLATELET COUNT (AUTO) 271 K/uL (150-450); RED BLOOD CELL COUNT(AUTO) 4.42 MIL/uL (4.00-5.20); RED CELL DISTRIBUTION WIDTH 13.7 % (11.5-14.5)
[2017-03-20 05:41] LABS: ANION GAP 3 mmol/L (8-16); CALCIUM, TOTAL 8.9 mg/dL (8.8-10.5); CARBON DIOXIDE 27 mmol/L (22-29); CHLORIDE 108 mmol/L (98-107); CREATININE 0.68 mg/dL (0.60-1.30); GLOMERULAR FILTR. RATE CALC > 60 mL/min (>60); GLUCOSE,RANDOM 106 mg/dL (70-110); POTASSIUM 4.3 mmol/L (3.5-5.1); SODIUM SERUM 138 mmol/L (136-145); UREA NITROGEN, BLOOD 15 mg/dL (7-18)
[2017-03-20] MEDS ORDERED: DiphenhydrAMINE HCL 50 MG/ML VIAL IVP ONE (05:45)
[2017-03-20] MEDS ORDERED: HYDROmorphone 2 MG/ML SYRINGE IVP ONE ×2 (05:45→06:30)
[2017-03-20 05:48] LABS: ALANINE AMINOTRANSFERASE 49 U/L (12-78); ALBUMIN 3.3 g/dL (3.4-5.0); ALKALINE PHOSPHATASE 58 U/L (46-116); ASPARTATE AMINOTRANSFERASE 27 U/L (15-37); BILIRUBIN,TOTAL 0.2 mg/dL (0.1-1.0); CARBAMAZEPINE (TEGRETOL) 2.9 mcg/mL (4.0-12.0); TOTAL PROTEIN, SERUM 6.7 g/dL (6.4-8.2)
[2017-03-20] MEDS ORDERED: TOBRAMYCIN/DEXAMETHASONE 5 ML OPHTHALMIC SUSPENSION OU ONE (06:00)
[2017-03-20] MEDS ORDERED: TOPIRAMATE 100 MG TABLET PO ONE (06:30)
[2017-03-20] MEDS ORDERED: LevETIRAcetam 500 MG TABLET PO ONE (06:30)
[2017-03-20] MEDS ORDERED: CarBAMazepine 200 MG TABLET PO ONE (06:30)
[2017-03-20 06:44] VITALS: BP 112/76
== END 2017-03-20 07:33 | disposition home or self-care (01) ==
LOC: EMS 02:25
DX: L03.213 Periorbital cellulitis (principal); G40.909 Epilepsy, unspecified, not intractable, without status epilepticus; J45.909 Unspecified asthma, uncomplicated; J44.9 Chronic obstructive pulmonary disease, unspecified; Z76.0 Encounter for issue of repeat prescription; Z88.6 Allergy status to analgesic agent; Z88.0 Allergy status to penicillin; Z88.2 Allergy status to sulfonamides; Z88.8 Allergy status to other drugs, medicaments and biological substances
CPT/HCPCS: 36415; 80053; 80156; 85025; 96365; 96368; 96375; 96376; 99284; J0696; J1170; J1200; J3490

== ENCOUNTER 2017-04-25 16:24 | Emergency (ER) | payer MEDICAID ==
[~2017-04-25] VITALS: Ht 144.8 cm; Wt 52.7 kg
[~2017-04-25 16:24] MED LIST changes: -CEFU250T87 PO; -DOXY100C PO; -METR500 PO
[2017-04-25] MEDS ORDERED: SODIUM CHLORIDE 0.9% 1,000 ML IV ONE (18:45)
[2017-04-25] MEDS ORDERED: MORPHINE SULFATE 4 MG/ML SYRINGE IVP ONE (18:45)
[2017-04-25] MEDS ORDERED: ONDANSETRON HCL 4 MG/2 ML VIAL IVP ONE (18:45)
[2017-04-25] MEDS ORDERED: HYDROmorphone 2 MG/ML SYRINGE IVP ONE ×2 (19:30→22:00)
[2017-04-25 19:32] LABS: BASOPHILS % (AUTO) 0.9 % (0.0-2.0); EOSINOPHILS % (AUTO) 1.9 % (1.0-6.0); HEMATOCRIT 45.6 % (36-46); HEMOGLOBIN 15.3 g/dL (12.0-16.0); LYMPHOCYTES # (AUTO) 1.5 K/uL (1.0-4.8); MEAN CORPUSCULAR HGB CONC 33.5 G/dL (31.0-37.0); MEAN CORPUSCULAR VOLUME 93 fL (80-100); MONOCYTES # (AUTO) 0.4 K/uL (0.1-1.0); MONOCYTES % (AUTO) 7.7 % (2.0-9.0); NEUTROPHILS # (AUTO) 3.4 K/uL (1.8-7.7); NEUTROPHILS % (AUTO) 61.5 % (40.0-70.0); PLATELET COUNT (AUTO) 245 K/uL (150-450); RED BLOOD CELL COUNT(AUTO) 4.92 MIL/uL (4.00-5.20)
[2017-04-25 19:43] LABS: ANION GAP 11 mmol/L (8-16); CALCIUM, TOTAL 9.6 mg/dL (8.8-10.5); CARBON DIOXIDE 24 mmol/L (22-29); CHLORIDE 102 mmol/L (98-107); CREATININE 0.76 mg/dL (0.60-1.30); GLOMERULAR FILTR. RATE CALC > 60 mL/min (>60); GLUCOSE,RANDOM 94 mg/dL (70-110); POTASSIUM 3.7 mmol/L (3.5-5.1); SODIUM SERUM 137 mmol/L (136-145); UREA NITROGEN, BLOOD 18 mg/dL (7-18)
[2017-04-25 19:49] LABS: ALANINE AMINOTRANSFERASE 37 U/L (12-78); ALBUMIN 4.1 g/dL (3.4-5.0); ALKALINE PHOSPHATASE 99 U/L (46-116); ASPARTATE AMINOTRANSFERASE 27 U/L (15-37); BILIRUBIN,TOTAL 0.2 mg/dL (0.1-1.0); TOTAL PROTEIN, SERUM 8.2 g/dL (6.4-8.2)
[2017-04-25] MEDS ORDERED: DiphenhydrAMINE HCL 50 MG/ML VIAL IVP ONE (20:00)
[2017-04-25] MEDS ORDERED: PROPARACAINE HCL 0.5% 15 ML OPHTHALMIC SOLUTION OS ONE (20:30)
[2017-04-25] MEDS ORDERED: FLUORESCEIN SODIUM 1 MG STRIP ONE (20:38)
[2017-04-25 21:45] VITALS: BP 110/79
== END 2017-04-25 22:33 | disposition home or self-care (01) ==
LOC: EMS 16:26
DX: H16.002 Unspecified corneal ulcer, left eye (principal); G40.909 Epilepsy, unspecified, not intractable, without status epilepticus; R11.2 Nausea with vomiting, unspecified; J44.9 Chronic obstructive pulmonary disease, unspecified; J45.909 Unspecified asthma, uncomplicated; Z88.6 Allergy status to analgesic agent; Z88.0 Allergy status to penicillin; Z88.2 Allergy status to sulfonamides; Z88.8 Allergy status to other drugs, medicaments and biological substances
CPT/HCPCS: 36415; 70450; 80053; 85025; 87040; 96361; 96374; 96375; 96376; 99285; J1170; J1200; J2405; J7030; J2270

== ENCOUNTER 2017-04-28 08:33 | Emergency (ER) | payer MEDICAID ==
[~2017-04-28] VITALS: Ht 147.3 cm; Wt 54.5 kg
[2017-04-28] MEDS ORDERED: PROPARACAINE HCL 0.5% 15 ML OPHTHALMIC SOLUTION OS ONE (09:15)
[2017-04-28] MEDS ORDERED: SODIUM CHLORIDE 0.9% 1,000 ML IV ONE (10:00)
[2017-04-28] MEDS ORDERED: ONDANSETRON HCL 4 MG/2 ML VIAL IVP ONE (10:00)
[2017-04-28] MEDS ORDERED: LevETIRAcetam 1,000 MG in DEXTROSE 5%-WATER 100 ML IV ONE (10:00)
[2017-04-28] MEDS ORDERED: CIPROFLOXACIN HCL 0.3% 2.5 ML OPHTHALMIC SOLUTION OS ONE (10:30)
[2017-04-28 10:33] LABS: BASOPHILS % (AUTO) 0.6 % (0.0-2.0); EOSINOPHILS % (AUTO) 2.1 % (1.0-6.0); HEMATOCRIT 35.8 % (36-46); HEMOGLOBIN 12.2 g/dL (12.0-16.0); LYMPHOCYTES # (AUTO) 1.3 K/uL (1.0-4.8); MEAN CORPUSCULAR HEMOGLOBIN 31.3 pg (26.0-34.0); MEAN CORPUSCULAR HGB CONC 34.1 G/dL (31.0-37.0); MEAN CORPUSCULAR VOLUME 92 fL (80-100); MONOCYTES # (AUTO) 0.4 K/uL (0.1-1.0); MONOCYTES % (AUTO) 8.9 % (2.0-9.0); NEUTROPHILS # (AUTO) 2.9 K/uL (1.8-7.7); NEUTROPHILS % (AUTO) 61.4 % (40.0-70.0); PLATELET COUNT (AUTO) 197 K/uL (150-450); RED BLOOD CELL COUNT(AUTO) 3.89 MIL/uL (4.00-5.20)
[2017-04-28 10:40] LABS: ANION GAP 7 mmol/L (8-16); CALCIUM, TOTAL 8.6 mg/dL (8.8-10.5); CARBON DIOXIDE 26 mmol/L (22-29); CHLORIDE 109 mmol/L (98-107); CREATININE 0.52 mg/dL (0.60-1.30); GLOMERULAR FILTR. RATE CALC > 60 mL/min (>60); GLUCOSE,RANDOM 85 mg/dL (70-110); SODIUM SERUM 142 mmol/L (136-145); UREA NITROGEN, BLOOD 16 mg/dL (7-18)
[2017-04-28 10:45] LABS: CARBAMAZEPINE (TEGRETOL) 5.2 mcg/mL (4.0-12.0)
[2017-04-28] MEDS ORDERED: DiphenhydrAMINE HCL 50 MG/ML VIAL IVP ONE (12:45)
[2017-04-28 13:10] VITALS: BP 118/72
== END 2017-04-28 13:44 | disposition home or self-care (01) ==
LOC: EMS 08:36
DX: H16.002 Unspecified corneal ulcer, left eye (principal); G40.909 Epilepsy, unspecified, not intractable, without status epilepticus; R11.2 Nausea with vomiting, unspecified; J44.9 Chronic obstructive pulmonary disease, unspecified; J45.909 Unspecified asthma, uncomplicated; Z88.6 Allergy status to analgesic agent; Z88.5 Allergy status to narcotic agent; Z88.0 Allergy status to penicillin; Z88.2 Allergy status to sulfonamides
CPT/HCPCS: 36415; 80048; 80156; 85025; 96374; 96375; 99284; J0712; J1200; J2405; J7030; J7060

== ENCOUNTER 2017-04-30 20:01 | Emergency (ER) | payer MEDICAID ==
[~2017-04-30] VITALS: Ht 144.8 cm; Wt 54.5 kg
[2017-04-30] MEDS ORDERED: MOXIOS OS (20:20)
[2017-04-30] MEDS ORDERED: CYCL12OS OS (20:20)
[2017-04-30] MEDS ORDERED: ONDANSETRON HCL 4 MG/2 ML VIAL IM ONE (20:45)
[2017-04-30] MEDS ORDERED: DiphenhydrAMINE HCL 50 MG/ML VIAL IM ONE (20:45)
[2017-04-30 21:01] VITALS: BP 113/63
== END 2017-04-30 21:04 | disposition home or self-care (01) ==
LOC: EMS 20:02
DX: H16.002 Unspecified corneal ulcer, left eye (principal); H44.002 Unspecified purulent endophthalmitis, left eye; F41.9 Anxiety disorder, unspecified; R11.2 Nausea with vomiting, unspecified; J45.909 Unspecified asthma, uncomplicated; Z86.14 Personal history of Methicillin resistant Staphylococcus aureus infection; Z88.0 Allergy status to penicillin; Z88.5 Allergy status to narcotic agent; Z88.2 Allergy status to sulfonamides; Z88.6 Allergy status to analgesic agent; Z79.899 Other long term (current) drug therapy
CPT/HCPCS: 96372; 99284; J1200; J2405

== ENCOUNTER 2017-05-22 09:04 | Emergency (ER) | payer MEDICAID ==
[~2017-05-22] VITALS: Ht 160 cm; Wt 56.8 kg
[~2017-05-22 09:04] MED LIST changes: +CYCL12OS OS; +MOXIOS OS
[2017-05-22] MEDS ORDERED: ONDANSETRON HCL 4 MG/2 ML VIAL IVP ONE (10:45)
[2017-05-22] MEDS ORDERED: HYDROmorphone 2 MG/ML SYRINGE IVP ONE (10:45)
[2017-05-22] MEDS ORDERED: PROPARACAINE HCL 0.5% 15 ML OPHTHALMIC SOLUTION OS ONE (10:45)
[2017-05-22] MEDS ORDERED: TOBRAMYCIN/DEXAMETHASONE 5 ML OPHTHALMIC SUSPENSION OS ONE (10:45)
[2017-05-22 10:56] LABS: BASOPHILS % (AUTO) 0.8 % (0.0-2.0); EOSINOPHILS % (AUTO) 0.6 % (1.0-6.0); HEMATOCRIT 47.3 % (36-46); LYMPHOCYTES # (AUTO) 1.1 K/uL (1.0-4.8); LYMPHOCYTES % (AUTO) 25.3 % (22.0-44.0); MEAN CORPUSCULAR HEMOGLOBIN 30.9 pg (26.0-34.0); MEAN CORPUSCULAR HGB CONC 33.9 G/dL (31.0-37.0); MEAN CORPUSCULAR VOLUME 91 fL (80-100); MONOCYTES # (AUTO) 0.2 K/uL (0.1-1.0); MONOCYTES % (AUTO) 4.8 % (2.0-9.0); NEUTROPHILS # (AUTO) 2.9 K/uL (1.8-7.7); NEUTROPHILS % (AUTO) 68.5 % (40.0-70.0); PLATELET COUNT (AUTO) 198 K/uL (150-450); RED BLOOD CELL COUNT(AUTO) 5.19 MIL/uL (4.00-5.20); RED CELL DISTRIBUTION WIDTH 12.8 % (11.5-14.5)
[2017-05-22 11:11] LABS: ANION GAP 10 mmol/L (8-16); CALCIUM, TOTAL 9.7 mg/dL (8.8-10.5); CARBON DIOXIDE 29 mmol/L (22-29); CHLORIDE 102 mmol/L (98-107); CREATININE 0.58 mg/dL (0.60-1.30); GLOMERULAR FILTR. RATE CALC > 60 mL/min (>60); GLUCOSE,RANDOM 88 mg/dL (70-110); POTASSIUM 4.5 mmol/L (3.5-5.1); SODIUM SERUM 141 mmol/L (136-145); UREA NITROGEN, BLOOD 15 mg/dL (7-18)
[2017-05-22] MEDS ORDERED: DiphenhydrAMINE HCL 50 MG/ML VIAL IVP ONE (11:15)
[2017-05-22 11:17] LABS: ALANINE AMINOTRANSFERASE 26 U/L (12-78); ALBUMIN 3.8 g/dL (3.4-5.0); ALKALINE PHOSPHATASE 96 U/L (46-116); ASPARTATE AMINOTRANSFERASE 23 U/L (15-37); BILIRUBIN,TOTAL 0.2 mg/dL (0.1-1.0); TOTAL PROTEIN, SERUM 7.7 g/dL (6.4-8.2)
[2017-05-22] MEDS ORDERED: LORazepam 1 MG TABLET PO ONE (12:15)
[2017-05-22 13:40] VITALS: BP 100/63
== END 2017-05-22 13:48 | disposition home or self-care (01) ==
LOC: EMS 09:06
DX: H10.89 Other conjunctivitis (principal); G89.29 Other chronic pain; J45.909 Unspecified asthma, uncomplicated; J44.9 Chronic obstructive pulmonary disease, unspecified; Z88.6 Allergy status to analgesic agent; Z88.5 Allergy status to narcotic agent; Z88.0 Allergy status to penicillin; Z88.2 Allergy status to sulfonamides; Z88.8 Allergy status to other drugs, medicaments and biological substances
CPT/HCPCS: 36415; 80053; 85025; 96374; 96375; 99284; J1170; J1200; J2405

== ENCOUNTER 2017-06-21 14:18 | Emergency (ER) | payer MEDICAID ==
[~2017-06-21] VITALS: Ht 144.8 cm; Wt 59.1 kg
[2017-06-21 14:57] LABS: GLUCOSE,POINT OF CARE 102 MG/DL (70-110)
[2017-06-21] MEDS ORDERED: CarBAMazepine 200 MG TABLET PO ONE (15:30)
[2017-06-21] MEDS ORDERED: LevETIRAcetam 1,000 MG in DEXTROSE 5%-WATER 100 ML IV ONE (15:30)
[2017-06-21] MEDS ORDERED: TOPIRAMATE 100 MG TABLET PO ONE (15:30)
[2017-06-21] MEDS ORDERED: LORazepam 2 MG/ML VIAL IVP ONE ×2 (15:30→19:15)
[2017-06-21] MEDS ORDERED: DiphenhydrAMINE HCL 50 MG/ML VIAL IVP ONE ×2 (16:30→19:15)
[2017-06-21 16:45] LABS: BASOPHILS % (AUTO) 0.6 % (0.0-2.0); EOSINOPHILS % (AUTO) 0.7 % (1.0-6.0); HEMATOCRIT 37.2 % (36-46); HEMOGLOBIN 12.8 g/dL (12.0-16.0); LYMPHOCYTES # (AUTO) 1.2 K/uL (1.0-4.8); LYMPHOCYTES % (AUTO) 28.9 % (22.0-44.0); MEAN CORPUSCULAR HEMOGLOBIN 31.2 pg (26.0-34.0); MEAN CORPUSCULAR HGB CONC 34.5 G/dL (31.0-37.0); MEAN CORPUSCULAR VOLUME 90 fL (80-100); MONOCYTES # (AUTO) 0.3 K/uL (0.1-1.0); MONOCYTES % (AUTO) 6.6 % (2.0-9.0); NEUTROPHILS # (AUTO) 2.6 K/uL (1.8-7.7); NEUTROPHILS % (AUTO) 63.2 % (40.0-70.0); PLATELET COUNT (AUTO) 179 K/uL (150-450); RED BLOOD CELL COUNT(AUTO) 4.12 MIL/uL (4.00-5.20); RED CELL DISTRIBUTION WIDTH 12.6 % (11.5-14.5)
[2017-06-21 17:11] LABS: ANION GAP 8 mmol/L (8-16); CALCIUM, TOTAL 8.6 mg/dL (8.8-10.5); CARBON DIOXIDE 26 mmol/L (22-29); CHLORIDE 109 mmol/L (98-107); GLOMERULAR FILTR. RATE CALC > 60 mL/min (>60); GLUCOSE,RANDOM 100 mg/dL (70-110); POTASSIUM 4.2 mmol/L (3.5-5.1); SODIUM SERUM 143 mmol/L (136-145); UREA NITROGEN, BLOOD 14 mg/dL (7-18)
[2017-06-21 17:17] LABS: ALANINE AMINOTRANSFERASE 19 U/L (12-78); ALBUMIN 3.2 g/dL (3.4-5.0); ALKALINE PHOSPHATASE 96 U/L (46-116); ASPARTATE AMINOTRANSFERASE 12 U/L (15-37); BILIRUBIN,TOTAL 0.1 mg/dL (0.1-1.0); TOTAL PROTEIN, SERUM 5.7 g/dL (6.4-8.2)
[2017-06-21 19:21] LABS: APPEARANCE,URINE CLEAR (CLEAR); BILIRUBIN,URINE NEGATIVE (NEGATIVE); GLUCOSE, URINE (UA) NEGATIVE (NEGATIVE); KETONES,URINE NEGATIVE (NEGATIVE); LEUKOCYTE ESTERASE ,URINE NEGATIVE (NEGATIVE); NITRATE,URINE NEGATIVE (NEGATIVE); OCCULT BLOOD,URINE NEGATIVE (NEGATIVE); PH,URINE 7.5 (5.0-8.0); PROTEIN,URINE NEGATIVE (NEGATIVE); UROBILINOGEN,URINE 0.2 mg/dL (<=1.0)
[2017-06-21 19:26] LABS: BACTERIA,URINE None Seen /HPF (None Seen); RBC,URINE None Seen /HPF (0-2); WBC,URINE None Seen /HPF (0-5)
[2017-06-21 19:37] VITALS: BP 124/67
== END 2017-06-21 19:39 | disposition home or self-care (01) ==
LOC: EMS 14:19
DX: G40.909 Epilepsy, unspecified, not intractable, without status epilepticus (principal); J45.909 Unspecified asthma, uncomplicated; J44.9 Chronic obstructive pulmonary disease, unspecified; Z88.8 Allergy status to other drugs, medicaments and biological substances; Z88.2 Allergy status to sulfonamides; Z88.5 Allergy status to narcotic agent; Z88.0 Allergy status to penicillin; Z88.6 Allergy status to analgesic agent
CPT/HCPCS: 36415; 70450; 71045; 73030; 80053; 80156; 81001; 82962; 85025; 96365; 96375; 96376; 99285; J0712; J1200; J2060; J7060

== ENCOUNTER 2017-07-13 11:22 | Emergency (ER) | payer MEDICAID ==
[~2017-07-13] VITALS: Ht 144.8 cm; Wt 59.1 kg
[~2017-07-13 11:22] MED LIST changes: -ALBU8.5H8 IH; -CYCL12OS OS; -MOXIOS OS; -TOBRDOS OU
[2017-07-13] MEDS ORDERED: CarBAMazepine 200 MG ER TABLET PO ONE (12:00)
[2017-07-13] MEDS ORDERED: TOPIRAMATE 100 MG TABLET PO ONE ×2 (12:00→12:30)
[2017-07-13 12:14] LABS: BASOPHILS % (AUTO) 0.6 % (0.0-2.0); EOSINOPHILS % (AUTO) 1.5 % (1.0-6.0); HEMATOCRIT 38.2 % (36-46); HEMOGLOBIN 13.1 g/dL (12.0-16.0); LYMPHOCYTES # (AUTO) 1.3 K/uL (1.0-4.8); LYMPHOCYTES % (AUTO) 34.9 % (22.0-44.0); MEAN CORPUSCULAR HEMOGLOBIN 31.3 pg (26.0-34.0); MEAN CORPUSCULAR HGB CONC 34.3 G/dL (31.0-37.0); MEAN CORPUSCULAR VOLUME 91 fL (80-100); MONOCYTES # (AUTO) 0.3 K/uL (0.1-1.0); MONOCYTES % (AUTO) 8.3 % (2.0-9.0); NEUTROPHILS % (AUTO) 54.7 % (40.0-70.0); PLATELET COUNT (AUTO) 212 K/uL (150-450); RED BLOOD CELL COUNT(AUTO) 4.19 MIL/uL (4.00-5.20); RED CELL DISTRIBUTION WIDTH 13.4 % (11.5-14.5)
[2017-07-13 12:29] LABS: ANION GAP 6 mmol/L (8-16); CALCIUM, TOTAL 8.5 mg/dL (8.8-10.5); CARBON DIOXIDE 27 mmol/L (22-29); CHLORIDE 108 mmol/L (98-107); CREATININE 0.65 mg/dL (0.60-1.30); GLOMERULAR FILTR. RATE CALC > 60 mL/min (>60); GLUCOSE,RANDOM 105 mg/dL (70-110); POTASSIUM 3.8 mmol/L (3.5-5.1); SODIUM SERUM 141 mmol/L (136-145); UREA NITROGEN, BLOOD 19 mg/dL (7-18)
[2017-07-13 12:36] LABS: ALANINE AMINOTRANSFERASE 22 U/L (12-78); ALKALINE PHOSPHATASE 77 U/L (46-116); ASPARTATE AMINOTRANSFERASE 16 U/L (15-37); BILIRUBIN,TOTAL 0.2 mg/dL (0.1-1.0); TOTAL PROTEIN, SERUM 5.8 g/dL (6.4-8.2)
[2017-07-13 12:48] LABS: B-TYPE NATRIURETIC PEPTIDE 20 pg/mL (0-100)
[2017-07-13 13:22] VITALS: BP 116/74
[2017-07-13] MEDS ORDERED: ONDANSETRON HCL 4 MG TABLET PO ONE (14:00)
[2017-07-13] MEDS ORDERED: DiphenhydrAMINE HCL 25 MG CAPSULE PO ONE (14:00)
[2017-07-13 14:52] LABS: AMPHET/METH SCREEN,URINE NEGATIVE (NEGATIVE); BARBITURATE SCREEN, URINE NEGATIVE (NEGATIVE); BENZODIAZEPINES SCREEN,URINE NEGATIVE (NEGATIVE); CANNABINOID SCREEN,URINE NEGATIVE (NEGATIVE); COCAINE SCREEN,URINE NEGATIVE (NEGATIVE); METHADONE SCREEN, URINE NEGATIVE (NEGATIVE); OPIATE SCREEN,URINE NEGATIVE (NEGATIVE)
[2017-07-13 14:53] LABS: PHENCYCLIDINE SCREEN,URINE NEGATIVE (NEGATIVE)
== END 2017-07-13 14:38 | disposition home or self-care (01) ==
LOC: EMS 11:23
DX: R07.9 Chest pain, unspecified (principal); R05 Cough; R06.02 Shortness of breath; R35.0 Frequency of micturition; R10.9 Unspecified abdominal pain; R11.0 Nausea; J45.909 Unspecified asthma, uncomplicated; J44.9 Chronic obstructive pulmonary disease, unspecified; Z88.6 Allergy status to analgesic agent; Z88.5 Allergy status to narcotic agent; Z88.0 Allergy status to penicillin; Z88.2 Allergy status to sulfonamides; Z88.8 Allergy status to other drugs, medicaments and biological substances
CPT/HCPCS: 36415; 71045; 80053; 80307; 81002; 83880; 84484; 85025; 87077; 87086; 87186; 93005; 99285; Q0162

== ENCOUNTER 2017-07-22 10:17 | Emergency (ER) | payer MEDICAID ==
[~2017-07-22] VITALS: Ht 144.8 cm; Wt 61.4 kg
[2017-07-22] MEDS ORDERED: [UNRECOGNIZED DRUG - OTHER] AS (10:45)
[2017-07-22] MEDS ORDERED: PROPARACAINE HCL 0.5% 15 ML OPHTHALMIC SOLUTION OS ONE (11:15)
[2017-07-22 12:30] VITALS: BP 122/87
== END 2017-07-22 12:47 | disposition home or self-care (01) ==
LOC: EMS 10:19
DX: H16.002 Unspecified corneal ulcer, left eye (principal); J44.9 Chronic obstructive pulmonary disease, unspecified; J45.909 Unspecified asthma, uncomplicated; Z88.0 Allergy status to penicillin; Z88.2 Allergy status to sulfonamides; Z88.5 Allergy status to narcotic agent; Z88.6 Allergy status to analgesic agent; Z88.8 Allergy status to other drugs, medicaments and biological substances
CPT/HCPCS: 99283

== ENCOUNTER 2017-08-09 19:28 | Emergency (ER) | payer MEDICAID ==
[~2017-08-09] VITALS: Ht 144.8 cm; Wt 59.1 kg
[~2017-08-09 19:28] MED LIST changes: +[UNRECOGNIZED DRUG - OTHER] AS
[2017-08-09] MEDS ORDERED: OFLO35OS OP (19:55)
[2017-08-09] MEDS ORDERED: ERYTHROMYCIN OS (19:55)
[2017-08-09] MEDS ORDERED: AMPHOTERICIN B OS (19:55)
[2017-08-09 22:07] LABS: BASOPHILS % (AUTO) 0.8 % (0.0-2.0); EOSINOPHILS % (AUTO) 2.2 % (1.0-6.0); HEMATOCRIT 41.1 % (36-46); HEMOGLOBIN 14.1 g/dL (12.0-16.0); LYMPHOCYTES # (AUTO) 1.8 K/uL (1.0-4.8); LYMPHOCYTES % (AUTO) 39.2 % (22.0-44.0); MEAN CORPUSCULAR HEMOGLOBIN 31.7 pg (26.0-34.0); MEAN CORPUSCULAR HGB CONC 34.3 G/dL (31.0-37.0); MEAN CORPUSCULAR VOLUME 92 fL (80-100); MONOCYTES # (AUTO) 0.5 K/uL (0.1-1.0); MONOCYTES % (AUTO) 10.9 % (2.0-9.0); NEUTROPHILS # (AUTO) 2.1 K/uL (1.8-7.7); NEUTROPHILS % (AUTO) 46.9 % (40.0-70.0); PLATELET COUNT (AUTO) 225 K/uL (150-450); RED BLOOD CELL COUNT(AUTO) 4.45 MIL/uL (4.00-5.20); RED CELL DISTRIBUTION WIDTH 13.6 % (11.5-14.5)
[2017-08-09 22:11] LABS: ANION GAP 3 mmol/L (8-16); CALCIUM, TOTAL 8.9 mg/dL (8.8-10.5); CARBON DIOXIDE 31 mmol/L (22-29); CHLORIDE 104 mmol/L (98-107); CREATININE 0.62 mg/dL (0.60-1.30); GLOMERULAR FILTR. RATE CALC > 60 mL/min (>60); GLUCOSE,RANDOM 103 mg/dL (70-110); POTASSIUM 4.4 mmol/L (3.5-5.1); SODIUM SERUM 138 mmol/L (136-145); UREA NITROGEN, BLOOD 18 mg/dL (7-18)
[2017-08-09] MEDS ORDERED: ONDANSETRON HCL 4 MG/2 ML VIAL IM ONE (22:15)
[2017-08-09 22:17] LABS: ALANINE AMINOTRANSFERASE 23 U/L (12-78); ALBUMIN 3.4 g/dL (3.4-5.0); ALKALINE PHOSPHATASE 84 U/L (46-116); ASPARTATE AMINOTRANSFERASE 19 U/L (15-37); BILIRUBIN,TOTAL 0.2 mg/dL (0.1-1.0); CARBAMAZEPINE (TEGRETOL) 1.6 mcg/mL (4.0-12.0); TOTAL PROTEIN, SERUM 6.6 g/dL (6.4-8.2)
[2017-08-09] MEDS ORDERED: LORazepam 2 MG/ML VIAL IM ONE (22:45)
[2017-08-09 23:30] VITALS: BP 105/64
== END 2017-08-09 23:33 | disposition home or self-care (01) ==
LOC: EMS 19:29
DX: G40.909 Epilepsy, unspecified, not intractable, without status epilepticus (principal); J44.9 Chronic obstructive pulmonary disease, unspecified; Z88.0 Allergy status to penicillin; Z88.2 Allergy status to sulfonamides; Z88.5 Allergy status to narcotic agent; Z88.6 Allergy status to analgesic agent; Z79.899 Other long term (current) drug therapy; Z88.8 Allergy status to other drugs, medicaments and biological substances
CPT/HCPCS: 36415; 80053; 80156; 85025; 96372; 99284; J2060; J2405

== ENCOUNTER 2017-08-10 04:32 | Emergency (ER) | payer MEDICAID ==
[~2017-08-10] VITALS: Ht 144.8 cm; Wt 61.4 kg
[~2017-08-10 04:32] MED LIST changes: +AMPHOTERICIN B OS; +ERYTHROMYCIN OS; +OFLO35OS OP
[2017-08-10 04:44] VITALS: BP 100/48
== END 2017-08-10 04:58 | disposition home or self-care (01) ==
LOC: EMS 04:33
DX: G40.909 Epilepsy, unspecified, not intractable, without status epilepticus (principal); J44.9 Chronic obstructive pulmonary disease, unspecified; Z88.0 Allergy status to penicillin; Z88.2 Allergy status to sulfonamides; Z88.5 Allergy status to narcotic agent; Z88.6 Allergy status to analgesic agent; Z79.899 Other long term (current) drug therapy
CPT/HCPCS: 99283

== ENCOUNTER 2017-10-19 10:17 | Emergency (ER) | payer MEDICAID ==
[~2017-10-19] VITALS: Ht 144.8 cm; Wt 59.1 kg
[2017-10-19] MEDS ORDERED: SODIUM CHLORIDE 0.9% 1,000 ML IV ONE (11:30)
[2017-10-19] MEDS ORDERED: DiphenhydrAMINE HCL 50 MG/ML VIAL IVP ONE (11:30)
[2017-10-19] MEDS ORDERED: TOPIRAMATE 100 MG TABLET PO ONE (11:30)
[2017-10-19 12:06] LABS: BASOPHILS % (AUTO) 0.6 % (0.0-2.0); EOSINOPHILS % (AUTO) 1.8 % (1.0-6.0); HEMATOCRIT 37.3 % (36-46); HEMOGLOBIN 12.8 g/dL (12.0-16.0); LYMPHOCYTES # (AUTO) 1.2 K/uL (1.0-4.8); LYMPHOCYTES % (AUTO) 29.6 % (22.0-44.0); MEAN CORPUSCULAR HEMOGLOBIN 31.6 pg (26.0-34.0); MEAN CORPUSCULAR HGB CONC 34.3 G/dL (31.0-37.0); MEAN CORPUSCULAR VOLUME 92 fL (80-100); MONOCYTES # (AUTO) 0.3 K/uL (0.1-1.0); MONOCYTES % (AUTO) 7.9 % (2.0-9.0); NEUTROPHILS # (AUTO) 2.4 K/uL (1.8-7.7); NEUTROPHILS % (AUTO) 60.1 % (40.0-70.0); PLATELET COUNT (AUTO) 200 K/uL (150-450); RED BLOOD CELL COUNT(AUTO) 4.05 MIL/uL (4.00-5.20); RED CELL DISTRIBUTION WIDTH 13.3 % (11.5-14.5)
[2017-10-19 12:29] LABS: ANION GAP 7 mmol/L (8-16); CALCIUM, TOTAL 7.9 mg/dL (8.8-10.5); CARBON DIOXIDE 22 mmol/L (22-29); CHLORIDE 109 mmol/L (98-107); CREATININE 0.67 mg/dL (0.60-1.30); GLOMERULAR FILTR. RATE CALC > 60 mL/min (>60); GLUCOSE,RANDOM 90 mg/dL (70-110); POTASSIUM 4.1 mmol/L (3.5-5.1); SODIUM SERUM 138 mmol/L (136-145); UREA NITROGEN, BLOOD 17 mg/dL (7-18)
[2017-10-19 12:35] LABS: CARBAMAZEPINE (TEGRETOL) 4.3 mcg/mL (4.0-12.0)
[2017-10-19 13:08] VITALS: BP 95/57
== END 2017-10-19 14:13 | disposition home or self-care (01) ==
LOC: EMS 10:18
DX: G40.909 Epilepsy, unspecified, not intractable, without status epilepticus (principal); G47.00 Insomnia, unspecified; M54.6 Pain in thoracic spine; J45.909 Unspecified asthma, uncomplicated; J44.9 Chronic obstructive pulmonary disease, unspecified; Z88.6 Allergy status to analgesic agent; Z88.0 Allergy status to penicillin; Z88.2 Allergy status to sulfonamides; Z88.5 Allergy status to narcotic agent; Z88.8 Allergy status to other drugs, medicaments and biological substances
CPT/HCPCS: 36415; 80048; 80156; 85025; 93005; 99285; J1200; J7030; 96374

== ENCOUNTER 2017-11-26 09:11 | Emergency (ER) | payer MEDICAID ==
[~2017-11-26] VITALS: Ht 144.8 cm; Wt 56.8 kg
[2017-11-26 10:54] LABS: BASOPHILS % (AUTO) 0.4 % (0.0-2.0); EOSINOPHILS % (AUTO) 2.8 % (1.0-6.0); HEMATOCRIT 40.9 % (36-46); HEMOGLOBIN 13.7 g/dL (12.0-16.0); LYMPHOCYTES # (AUTO) 1.4 K/uL (1.0-4.8); LYMPHOCYTES % (AUTO) 25.2 % (22.0-44.0); MEAN CORPUSCULAR HEMOGLOBIN 31.1 pg (26.0-34.0); MEAN CORPUSCULAR HGB CONC 33.6 G/dL (31.0-37.0); MEAN CORPUSCULAR VOLUME 93 fL (80-100); MONOCYTES # (AUTO) 0.4 K/uL (0.1-1.0); NEUTROPHILS # (AUTO) 3.7 K/uL (1.8-7.7); NEUTROPHILS % (AUTO) 64.6 % (40.0-70.0); PLATELET COUNT (AUTO) 235 K/uL (150-450); RED BLOOD CELL COUNT(AUTO) 4.41 MIL/uL (4.00-5.20); RED CELL DISTRIBUTION WIDTH 13.8 % (11.5-14.5)
[2017-11-26] MEDS ORDERED: ONDANSETRON HCL 4 MG/2 ML VIAL IVP ONE (11:00)
[2017-11-26] MEDS ORDERED: ALBUTEROL SULFATE HFA 90 MCG/PUFF 8 GM INHALER IH ONE (11:00)
[2017-11-26] MEDS ORDERED: DiphenhydrAMINE HCL 50 MG/ML VIAL IVP ONE (11:00)
[2017-11-26 11:12] LABS: ANION GAP 12 mmol/L (8-16); CALCIUM, TOTAL 8.7 mg/dL (8.8-10.5); CARBON DIOXIDE 20 mmol/L (22-29); CHLORIDE 110 mmol/L (98-107); CREATININE 0.77 mg/dL (0.60-1.30); GLOMERULAR FILTR. RATE CALC > 60 mL/min (>60); GLUCOSE,RANDOM 91 mg/dL (70-110); SODIUM SERUM 142 mmol/L (136-145); UREA NITROGEN, BLOOD 21 mg/dL (7-18)
[2017-11-26 11:18] LABS: ALANINE AMINOTRANSFERASE 92 U/L (12-78); ALBUMIN 3.4 g/dL (3.4-5.0); ALKALINE PHOSPHATASE 80 U/L (46-116); ASPARTATE AMINOTRANSFERASE 83 U/L (15-37); BILIRUBIN,TOTAL 0.2 mg/dL (0.1-1.0); TOTAL PROTEIN, SERUM 6.8 g/dL (6.4-8.2)
[2017-11-26 13:25] VITALS: BP 100/55
== END 2017-11-26 13:34 | disposition home or self-care (01) ==
LOC: EMS 09:11
DX: G40.909 Epilepsy, unspecified, not intractable, without status epilepticus (principal); R74.0 Nonspecific elevation of levels of transaminase and lactic acid dehydrogenase [LDH]; J45.909 Unspecified asthma, uncomplicated; J44.9 Chronic obstructive pulmonary disease, unspecified; I42.9 Cardiomyopathy, unspecified; G35 Multiple sclerosis; Z86.14 Personal history of Methicillin resistant Staphylococcus aureus infection; Z86.011 Personal history of benign neoplasm of the brain; Z88.0 Allergy status to penicillin; Z88.6 Allergy status to analgesic agent; Z88.2 Allergy status to sulfonamides; Z79.2 Long term (current) use of antibiotics; Z79.899 Other long term (current) drug therapy
CPT/HCPCS: 36415; 71045; 80053; 85025; 94640; 96374; 96375; 99285; J1200; J2405; J3535

== ENCOUNTER 2018-01-10 16:52 | Emergency (ER) | payer MEDICAID ==
[~2018-01-10] VITALS: Ht 144.8 cm; Wt 56.8 kg
[2018-01-10 17:04] VITALS: BP 110/73
== END 2018-01-10 17:54 | disposition home or self-care (01) ==
LOC: EMS 16:53
DX: G40.909 Epilepsy, unspecified, not intractable, without status epilepticus (principal); H16.002 Unspecified corneal ulcer, left eye; F41.9 Anxiety disorder, unspecified; F17.210 Nicotine dependence, cigarettes, uncomplicated; J45.909 Unspecified asthma, uncomplicated; J44.9 Chronic obstructive pulmonary disease, unspecified; Z91.19 Patient's noncompliance with other medical treatment and regimen; Z88.6 Allergy status to analgesic agent; Z88.5 Allergy status to narcotic agent; Z88.0 Allergy status to penicillin; Z88.2 Allergy status to sulfonamides; Z88.8 Allergy status to other drugs, medicaments and biological substances; Z79.899 Other long term (current) drug therapy
CPT/HCPCS: 99283; 99406

== ENCOUNTER 2018-09-22 08:56 | Inpatient (IN) | payer MEDICAID ==
[~2018-09-22] VITALS: Ht 144.8 cm; Wt 63.6 kg
[2018-09-22] MEDS ORDERED: COMP5 PO (09:11)
[2018-09-22] MEDS ORDERED: DIPHENOXYLATE/ATROP 2.5-0.025 MG TABLET PO ONE (09:45)
[2018-09-22] MEDS ORDERED: SODIUM CHLORIDE 0.9% 2,000 ML IV ONE (09:45)
[2018-09-22] MEDS ORDERED: ONDANSETRON HCL 4 MG/2 ML VIAL IVP ONE (09:45)
[2018-09-22] MEDS ORDERED: HYDROmorphone 2 MG/ML SYRINGE IVP ONE (09:45)
[2018-09-22 09:58] LABS: BASOPHILS % (AUTO) 0.7 % (0.0-2.0); EOSINOPHILS % (AUTO) 2.2 % (1.0-6.0); HEMATOCRIT 37.9 % (36-46); HEMOGLOBIN 12.5 g/dL (12.0-16.0); LYMPHOCYTES # (AUTO) 1.4 K/uL (1.0-4.8); LYMPHOCYTES % (AUTO) 25.3 % (22.0-44.0); MEAN CORPUSCULAR HEMOGLOBIN 29.2 pg (26.0-34.0); MEAN CORPUSCULAR HGB CONC 32.9 G/dL (31.0-37.0); MEAN CORPUSCULAR VOLUME 89 fL (80-100); MONOCYTES # (AUTO) 0.6 K/uL (0.1-1.0); MONOCYTES % (AUTO) 10.5 % (2.0-9.0); NEUTROPHILS # (AUTO) 3.3 K/uL (1.8-7.7); NEUTROPHILS % (AUTO) 61.3 % (40.0-70.0); PLATELET COUNT (AUTO) 259 K/uL (150-450); RED BLOOD CELL COUNT(AUTO) 4.28 MIL/uL (4.00-5.20); RED CELL DISTRIBUTION WIDTH 13.9 % (11.5-14.5)
[2018-09-22 10:13] LABS: ANION GAP 8 mmol/L (8-16); CALCIUM, TOTAL 8.9 mg/dL (8.8-10.5); CARBON DIOXIDE 22 mmol/L (22-29); CHLORIDE 108 mmol/L (98-107); CREATININE 0.93 mg/dL (0.60-1.30); GLOMERULAR FILTR. RATE CALC > 60 mL/min (>60); GLUCOSE,RANDOM 93 mg/dL (70-110); POTASSIUM 3.5 mmol/L (3.5-5.1); SODIUM SERUM 138 mmol/L (136-145); UREA NITROGEN, BLOOD 19 mg/dL (7-18)
[2018-09-22] MEDS ORDERED: DEXTROSE 5%-0.45% SODIUM CHL 1,000 ML IV ONE (10:15)
[2018-09-22] MEDS ORDERED: ONDANSETRON HCL 4 MG/2 ML VIAL IVP PRN (10:15)
[2018-09-22] MEDS ORDERED: LORazepam 2 MG/ML VIAL IVP PRN (10:15)
[2018-09-22 10:19] LABS: LACTIC ACID 1.3 mmol/L (0.4-2.0)
[2018-09-22 10:26] LABS: ALANINE AMINOTRANSFERASE 20 U/L (12-78); ALKALINE PHOSPHATASE 84 U/L (46-116); ASPARTATE AMINOTRANSFERASE 15 U/L (15-37); BILIRUBIN,TOTAL 0.2 mg/dL (0.1-1.0); LIPASE 120 U/L (73-393); TOTAL PROTEIN, SERUM 6.4 g/dL (6.4-8.2)
[2018-09-22 10:37] LABS: CARBAMAZEPINE (TEGRETOL) 4.6 mcg/mL (4.0-12.0)
[2018-09-22] MEDS ORDERED: DiphenhydrAMINE HCL 50 MG/ML VIAL IVP ONE (12:15)
[2018-09-22] MEDS ORDERED: POTASSIUM CHLORIDE 20 MEQ ER TABLET PO ONE (13:00)
[2018-09-22 15:26] VITALS: BP 106/53
[2018-09-22 20:06] VITALS: BP 86/55
[2018-09-22] MEDS: LevETIRAcetam 500 MG TABLET PO SCH (20:37)
[2018-09-22] MEDS: CarBAMazepine 200 MG TABLET PO SCH (20:37)
[2018-09-22 20:55] VITALS: BP 91/56
[2018-09-22 21:02] VITALS: BP 98/60
[2018-09-22] MEDS ORDERED: HYDROmorphone 2 MG/ML SYRINGE IVP PRN (21:15)
[2018-09-22] MEDS: TOPIRAMATE 100 MG TABLET PO SCH (22:00)
[2018-09-23] VITALS (7 sets, daily range): BP systolic 83–120; BP diastolic 51–58
[2018-09-23 07:42] LABS: ANION GAP 8 mmol/L (8-16); CALCIUM, TOTAL 8.9 mg/dL (8.8-10.5); CARBON DIOXIDE 23 mmol/L (22-29); CHLORIDE 108 mmol/L (98-107); CREATININE 0.71 mg/dL (0.60-1.30); GLOMERULAR FILTR. RATE CALC > 60 mL/min (>60); GLUCOSE,RANDOM 80 mg/dL (70-110); POTASSIUM 3.7 mmol/L (3.5-5.1); SODIUM SERUM 139 mmol/L (136-145); UREA NITROGEN, BLOOD 11 mg/dL (7-18)
[2018-09-23] MEDS: LevETIRAcetam 500 MG TABLET PO SCH ×2 (08:43→19:54)
[2018-09-23] MEDS: CarBAMazepine 200 MG TABLET PO SCH ×2 (08:43→19:53)
[2018-09-23] MEDS: TOPIRAMATE 100 MG TABLET PO SCH ×2 (08:43→19:53)
[2018-09-23] MEDS: SODIUM CHLORIDE 0.9% 1,000 ML IV SCH (16:16)
[2018-09-23] MEDS: DiphenhydrAMINE HCL 50 MG/ML VIAL IVP PRN (19:54)
[2018-09-24] MEDS: DiphenhydrAMINE HCL 50 MG/ML VIAL IVP PRN ×2 (02:06→07:45)
[2018-09-24] MEDS: SODIUM CHLORIDE 0.9% 1,000 ML IV SCH (02:08)
[2018-09-24 05:05] VITALS: BP 138/57
[2018-09-24 05:58] LABS: BASOPHILS % (AUTO) 0.5 % (0.0-2.0); EOSINOPHILS % (AUTO) 4.1 % (1.0-6.0); HEMATOCRIT 37.8 % (36-46); HEMOGLOBIN 12.4 g/dL (12.0-16.0); LYMPHOCYTES # (AUTO) 1.2 K/uL (1.0-4.8); LYMPHOCYTES % (AUTO) 33.4 % (22.0-44.0); MEAN CORPUSCULAR HEMOGLOBIN 29.3 pg (26.0-34.0); MEAN CORPUSCULAR HGB CONC 32.9 G/dL (31.0-37.0); MEAN CORPUSCULAR VOLUME 89 fL (80-100); MONOCYTES # (AUTO) 0.5 K/uL (0.1-1.0); MONOCYTES % (AUTO) 13.3 % (2.0-9.0); NEUTROPHILS # (AUTO) 1.7 K/uL (1.8-7.7); NEUTROPHILS % (AUTO) 48.7 % (40.0-70.0); PLATELET COUNT (AUTO) 247 K/uL (150-450); RED BLOOD CELL COUNT(AUTO) 4.24 MIL/uL (4.00-5.20); RED CELL DISTRIBUTION WIDTH 14.2 % (11.5-14.5)
[2018-09-24 06:30] LABS: ANION GAP 9 mmol/L (8-16); CALCIUM, TOTAL 8.1 mg/dL (8.8-10.5); CARBON DIOXIDE 21 mmol/L (22-29); CHLORIDE 110 mmol/L (98-107); CREATININE 0.76 mg/dL (0.60-1.30); GLOMERULAR FILTR. RATE CALC > 60 mL/min (>60); GLUCOSE,RANDOM 107 mg/dL (70-110); POTASSIUM 3.7 mmol/L (3.5-5.1); SODIUM SERUM 140 mmol/L (136-145); UREA NITROGEN, BLOOD 14 mg/dL (7-18)
[2018-09-24] MEDS: CarBAMazepine 200 MG TABLET PO SCH (07:42)
[2018-09-24] MEDS: LevETIRAcetam 500 MG TABLET PO SCH (07:42)
[2018-09-24] MEDS: TOPIRAMATE 100 MG TABLET PO SCH (07:42)
[2018-09-24 08:02] VITALS: BP 133/76
== END 2018-09-24 10:00 | disposition home or self-care (01) | DRG 244 ==
LOC: EMS 08:58 → 4E 11:44
PROVIDERS: ADMIT Internal Medicine; ATTEND Internal Medicine
DX: K57.30 Diverticulosis of large intestine without perforation or abscess without bleeding (principal); I42.9 Cardiomyopathy, unspecified; I95.9 Hypotension, unspecified; A08.4 Viral intestinal infection, unspecified; G40.909 Epilepsy, unspecified, not intractable, without status epilepticus; J44.9 Chronic obstructive pulmonary disease, unspecified; K64.9 Unspecified hemorrhoids; Z88.0 Allergy status to penicillin; Z88.5 Allergy status to narcotic agent; Z88.8 Allergy status to other drugs, medicaments and biological substances; Z88.1 Allergy status to other antibiotic agents; Z88.6 Allergy status to analgesic agent; Z86.14 Personal history of Methicillin resistant Staphylococcus aureus infection; Z82.49 Family history of ischemic heart disease and other diseases of the circulatory system; Z83.3 Family history of diabetes mellitus; Z76.5 Malingerer [conscious simulation]
CPT/HCPCS: 74176; 83605; 87040; 87081; 93005; 93306; G0378; G0480; J1170; J1200; J2405; J7030

== ENCOUNTER 2019-04-20 23:01 | Emergency (ER) | payer MEDICAID ==
[~2019-04-20] VITALS: Ht 144.8 cm; Wt 68.2 kg
[~2019-04-20 23:01] MED LIST changes: -AMPHOTERICIN B OS; -CARV3.1262 PO; -ERYTHROMYCIN OS; -FURO20 PO; -OFLO35OS OP; -[UNRECOGNIZED DRUG - OTHER] AS
[2019-04-20] MEDS ORDERED: FURO20 PO (23:59)
[2019-04-20] MEDS ORDERED: CARV3 PO (23:59)
[2019-04-21] MEDS ORDERED: ALBUTEROL SULFATE 2.5 MG/0.5 ML NEB SOLUTION NEB ONE (00:45)
[2019-04-21] MEDS ORDERED: IPRATROPIUM BROMIDE 0.5 MG/2.5 ML NEB SOLUTION NEB ONE (00:45)
[2019-04-21 01:13] LABS: BASOPHILS % (AUTO) 0.4 % (0.0-2.0); EOSINOPHILS % (AUTO) 0.8 % (1.0-6.0); HEMATOCRIT 44.9 % (36-46); LYMPHOCYTES # (AUTO) 2.1 K/uL (1.0-4.8); LYMPHOCYTES % (AUTO) 19.7 % (22.0-44.0); MEAN CORPUSCULAR HEMOGLOBIN 28.9 pg (26.0-34.0); MEAN CORPUSCULAR HGB CONC 33.4 G/dL (31.0-37.0); MEAN CORPUSCULAR VOLUME 87 fL (80-100); MONOCYTES % (AUTO) 9.7 % (2.0-9.0); NEUTROPHILS # (AUTO) 7.4 K/uL (1.8-7.7); NEUTROPHILS % (AUTO) 69.4 % (40.0-70.0); PLATELET COUNT (AUTO) 308 K/uL (150-450); RED BLOOD CELL COUNT(AUTO) 5.19 MIL/uL (4.00-5.20); RED CELL DISTRIBUTION WIDTH 12.9 % (11.5-14.5)
[2019-04-21] MEDS ORDERED: LevETIRAcetam 1,500 MG in DEXTROSE 5%-WATER 100 ML IV ONE (01:30)
[2019-04-21 01:37] LABS: CALCIUM, TOTAL 9.3 mg/dL (8.8-10.5); CREATININE 1.01 mg/dL (0.60-1.30); POTASSIUM 3.3 mmol/L (3.5-5.1)
[2019-04-21 01:43] LABS: ALBUMIN 3.4 g/dL (3.4-5.0); BILIRUBIN,TOTAL 0.1 mg/dL (0.1-1.0); TOTAL PROTEIN, SERUM 7.3 g/dL (6.4-8.2)
[2019-04-21] MEDS ORDERED: MethylPREDNISolone SOD SUCC 125 MG/2 ML VIAL IVP ONE (01:45)
[2019-04-21] MEDS ORDERED: ONDANSETRON HCL 4 MG/2 ML VIAL IVP ONE (02:00)
[2019-04-21] MEDS ORDERED: IOVERSOL 350 MG/ML 100 ML VIAL ONE (02:01)
[2019-04-21] MEDS ORDERED: SODIUM CHLORIDE 0.9% 100 ML ONE (02:02)
[2019-04-21] MEDS ORDERED: POTASSIUM CITRATE 5 MEQ ER TABLET PO ONE (02:15)
[2019-04-21] MEDS ORDERED: POTASSIUM CHLORIDE 20 MEQ ER TABLET PO ONE (02:30)
[2019-04-21] MEDS ORDERED: DiphenhydrAMINE HCL 25 MG CAPSULE PO ONE (02:30)
[2019-04-21 02:37] LABS: MAGNESIUM 1.9 mg/dL (1.80-2.40); PHOSPHORUS 3.3 mg/dL (2.5-4.9)
[2019-04-21 03:28] VITALS: BP 142/88
[2019-04-21] MEDS ORDERED: LORazepam 2 MG/ML VIAL IVP ONE (03:45)
[2019-04-21 05:00] LABS: INFLUENZA TYPE A NEGATIVE FOR TYPE A (NEGATIVE); INFLUENZA TYPE B NEGATIVE FOR TYPE B (NEGATIVE)
== END 2019-04-21 06:00 | disposition left against medical advice (07) ==
LOC: EMS 23:02
DX: R07.81 Pleurodynia (principal); R50.9 Fever, unspecified; R04.2 Hemoptysis; R06.2 Wheezing; J44.9 Chronic obstructive pulmonary disease, unspecified; G35 Multiple sclerosis; Z98.890 Other specified postprocedural states; Z79.899 Other long term (current) drug therapy; Z88.6 Allergy status to analgesic agent; Z88.5 Allergy status to narcotic agent; Z88.0 Allergy status to penicillin; Z88.2 Allergy status to sulfonamides
CPT/HCPCS: 36415; 71045; 71275; 80053; 83735; 83880; 84100; 84484; 85025; 87804; 93005; 94640; 96365; 96375; 99284; J0712; J2060; J2405; J2930; J7050; J7060; Q9967; 94060

== ENCOUNTER 2019-10-17 10:32 | Emergency (ER) | payer MEDICAID ==
[~2019-10-17] VITALS: Ht 149.9 cm; Wt 85.0 kg
[~2019-10-17 10:32] MED LIST changes: +CARV3 PO; +FURO20 PO
[2019-10-17] MEDS ORDERED: ACETAMINOPHEN 500 MG TABLET PO ONE (11:15)
[2019-10-17] MEDS ORDERED: SODIUM CHLORIDE 0.9% 1,000 ML IV ONE (11:15)
[2019-10-17] MEDS ORDERED: ONDANSETRON HCL 4 MG/2 ML VIAL IVP ONE (11:15)
[2019-10-17] MEDS ORDERED: DiphenhydrAMINE HCL 50 MG/ML VIAL IVP ONE (11:15)
[2019-10-17 11:28] LABS: BASOPHILS % (AUTO) 1.4 % (0.0-2.0); EOSINOPHILS % (AUTO) 4.3 % (1.0-6.0); HEMATOCRIT 39.1 % (36-46); HEMOGLOBIN 13.2 g/dL (12.0-16.0); LYMPHOCYTES # (AUTO) 1.3 K/uL (1.0-4.8); LYMPHOCYTES % (AUTO) 27.1 % (22.0-44.0); MEAN CORPUSCULAR HEMOGLOBIN 30.2 pg (26.0-34.0); MEAN CORPUSCULAR HGB CONC 33.7 G/dL (31.0-37.0); MEAN CORPUSCULAR VOLUME 90 fL (80-100); MONOCYTES # (AUTO) 0.5 K/uL (0.1-1.0); MONOCYTES % (AUTO) 11.3 % (2.0-9.0); NEUTROPHILS # (AUTO) 2.7 K/uL (1.8-7.7); NEUTROPHILS % (AUTO) 55.9 % (40.0-70.0); PLATELET COUNT (AUTO) 235 K/uL (150-450); RED BLOOD CELL COUNT(AUTO) 4.36 MIL/uL (4.00-5.20); RED CELL DISTRIBUTION WIDTH 12.9 % (11.5-14.5)
[2019-10-17 11:41] LABS: ANION GAP 9 mmol/L (8-16); CALCIUM, TOTAL 8.9 mg/dL (8.8-10.5); CARBON DIOXIDE 24 mmol/L (22-29); CHLORIDE 111 mmol/L (98-107); CREATININE 0.86 mg/dL (0.60-1.30); GLOMERULAR FILTR. RATE CALC > 60 mL/min (>60); GLUCOSE,RANDOM 132 mg/dL (70-110); POTASSIUM 3.6 mmol/L (3.5-5.1); SODIUM SERUM 144 mmol/L (136-145); UREA NITROGEN, BLOOD 20 mg/dL (7-18)
[2019-10-17 11:46] LABS: INR 0.9 (0.9-1.1)
[2019-10-17 11:54] LABS: ALANINE AMINOTRANSFERASE 27 U/L (12-78); ALBUMIN 3.1 g/dL (3.4-5.0); ALKALINE PHOSPHATASE 120 U/L (46-116); ASPARTATE AMINOTRANSFERASE 15 U/L (15-37); BILIRUBIN,TOTAL 0.1 mg/dL (0.1-1.0); LIPASE 132 U/L (73-393); TOTAL PROTEIN, SERUM 6.6 g/dL (6.4-8.2)
[2019-10-17 12:49] VITALS: BP 111/66
== END 2019-10-17 12:59 | disposition home or self-care (01) ==
LOC: EMS 10:34
DX: K52.9 Noninfective gastroenteritis and colitis, unspecified (principal); R04.0 Epistaxis; J45.909 Unspecified asthma, uncomplicated; Z88.6 Allergy status to analgesic agent; Z88.0 Allergy status to penicillin; Z88.2 Allergy status to sulfonamides; Z79.899 Other long term (current) drug therapy
CPT/HCPCS: 36415; 80053; 83690; 84702; 85025; 85610; 85730; 96361; 96374; 96375; 99285; J1200; J2405; J7030

== ENCOUNTER 2020-10-15 03:30 | Emergency (ER) | payer MEDICAID ==
[~2020-10-15] VITALS: Ht 144.8 cm; Wt 77.3 kg
[~2020-10-15 03:30] MED LIST changes: -BECL8.7A5 IH
[2020-10-15] MEDS ORDERED: ONDANSETRON HCL 4 MG/2 ML VIAL IVP ONE (05:30)
[2020-10-15] MEDS ORDERED: SODIUM CHLORIDE 0.9% 1,000 ML IV ONE ×2 (05:30→07:30)
[2020-10-15 05:44] LABS: COVID AG,FIA SOURCE NASOPHARYNGEAL
[2020-10-15 06:40] LABS: BASOPHILS % (AUTO) 0.9 % (0.0-2.0); EOSINOPHILS % (AUTO) 4.2 % (1.0-6.0); HEMATOCRIT 40.7 % (36-46); HEMOGLOBIN 13.5 g/dL (12.0-16.0); LYMPHOCYTES # (AUTO) 2.2 K/uL (1.0-4.8); LYMPHOCYTES % (AUTO) 33.2 % (22.0-44.0); MEAN CORPUSCULAR HEMOGLOBIN 30.2 pg (26.0-34.0); MEAN CORPUSCULAR HGB CONC 33.2 G/dL (31.0-37.0); MEAN CORPUSCULAR VOLUME 91 fL (80-100); MONOCYTES # (AUTO) 0.6 K/uL (0.1-1.0); NEUTROPHILS # (AUTO) 3.5 K/uL (1.8-7.7); NEUTROPHILS % (AUTO) 52.7 % (40.0-70.0); PLATELET COUNT (AUTO) 235 K/uL (150-450); RED BLOOD CELL COUNT(AUTO) 4.48 MIL/uL (4.00-5.20); RED CELL DISTRIBUTION WIDTH 12.9 % (11.5-14.5)
[2020-10-15 06:51] LABS: ANION GAP 10 mmol/L (8-16); CALCIUM, TOTAL 8.8 mg/dL (8.8-10.5); CARBON DIOXIDE 22 mmol/L (22-29); CHLORIDE 107 mmol/L (98-107); GLOMERULAR FILTR. RATE CALC > 60 mL/min (>60); GLUCOSE,RANDOM 95 mg/dL (70-110); SODIUM SERUM 139 mmol/L (136-145); UREA NITROGEN, BLOOD 20 mg/dL (7-18)
[2020-10-15] MEDS ORDERED: ACETAMINOPHEN 500 MG TABLET PO ONE (07:00)
[2020-10-15 07:18] LABS: ALANINE AMINOTRANSFERASE 26 U/L (12-78); ALBUMIN 3.1 g/dL (3.4-5.0); ALKALINE PHOSPHATASE 112 U/L (46-116); ASPARTATE AMINOTRANSFERASE 16 U/L (15-37); BILIRUBIN,TOTAL 0.1 mg/dL (0.1-1.0); HCG,QUANTITATIVE 1 mIU/mL (0-6); TOTAL PROTEIN, SERUM 6.6 g/dL (6.4-8.2)
[2020-10-15] MEDS ORDERED: HydrOXYzine PAMOATE 25 MG CAPSULE PO ONE (07:30)
[2020-10-15 09:12] LABS: APPEARANCE,URINE TURBID (CLEAR); BILIRUBIN,URINE NEGATIVE (NEGATIVE); GLUCOSE, URINE (UA) NEGATIVE (NEGATIVE); KETONES,URINE NEGATIVE (NEGATIVE); LEUKOCYTE ESTERASE ,URINE SMALL (NEGATIVE); NITRATE,URINE POSITIVE (NEGATIVE); PROTEIN,URINE NEGATIVE (NEGATIVE); UROBILINOGEN,URINE 0.2 mg/dL (<=1.0)
[2020-10-15 09:23] LABS: BACTERIA,URINE Many /HPF (None Seen); OCCULT BLOOD,URINE SMALL (NEGATIVE)
[2020-10-15] MEDS ORDERED: CEPHALEXIN MONOHYDRATE 500 MG CAPSULE PO ONE (10:00)
[2020-10-15 10:34] VITALS: BP 101/54
== END 2020-10-15 10:36 | disposition home or self-care (01) ==
LOC: EMS 03:31
DX: N12 Tubulo-interstitial nephritis, not specified as acute or chronic (principal); J45.909 Unspecified asthma, uncomplicated; Z88.8 Allergy status to other drugs, medicaments and biological substances; Z20.822 Contact with and (suspected) exposure to COVID-19; Z88.2 Allergy status to sulfonamides; Z88.0 Allergy status to penicillin; Z88.6 Allergy status to analgesic agent; Z79.899 Other long term (current) drug therapy
CPT/HCPCS: 36415; 80053; 81001; 82550; 84702; 85025; 87077; 87086; 87186; 87426; 96361; 96374; 99285; J2405; J7030; U0003; 51701

== ENCOUNTER 2020-11-10 12:24 | Emergency (ER) | payer MEDICAID ==
[~2020-11-10] VITALS: Ht 149.9 cm; Wt 77.3 kg
[2020-11-10 12:28] VITALS: BP 106/53
[2020-11-10 14:00] LABS: BILIRUBIN,URINE NEGATIVE (NEGATIVE); GLUCOSE, URINE (UA) NEGATIVE (NEGATIVE); KETONES,URINE NEGATIVE (NEGATIVE); LEUKOCYTE ESTERASE ,URINE SMALL (NEGATIVE); NITRATE,URINE NEGATIVE (NEGATIVE); OCCULT BLOOD,URINE NEGATIVE (NEGATIVE); PH,URINE 5.5 (5.0-8.0); PROTEIN,URINE NEGATIVE (NEGATIVE); UROBILINOGEN,URINE 0.2 mg/dL (<=1.0)
[2020-11-10] MEDS ORDERED: DiphenhydrAMINE HCL 50 MG/ML VIAL IVP ONE (14:15)
[2020-11-10 14:20] LABS: BASOPHILS % (AUTO) 1.4 % (0.0-2.0); HEMATOCRIT 41.5 % (36-46); HEMOGLOBIN 13.8 g/dL (12.0-16.0); LYMPHOCYTES # (AUTO) 2.2 K/uL (1.0-4.8); LYMPHOCYTES % (AUTO) 25.6 % (22.0-44.0); MEAN CORPUSCULAR HEMOGLOBIN 30.1 pg (26.0-34.0); MEAN CORPUSCULAR HGB CONC 33.1 G/dL (31.0-37.0); MEAN CORPUSCULAR VOLUME 91 fL (80-100); MONOCYTES # (AUTO) 0.6 K/uL (0.1-1.0); MONOCYTES % (AUTO) 6.5 % (2.0-9.0); NEUTROPHILS # (AUTO) 5.4 K/uL (1.8-7.7); NEUTROPHILS % (AUTO) 63.5 % (40.0-70.0); RED BLOOD CELL COUNT(AUTO) 4.57 MIL/uL (4.00-5.20); RED CELL DISTRIBUTION WIDTH 13.1 % (11.5-14.5)
[2020-11-10 14:25] LABS: ANION GAP 12 mmol/L (8-16); CALCIUM, TOTAL 8.6 mg/dL (8.8-10.5); CARBON DIOXIDE 21 mmol/L (22-29); CHLORIDE 108 mmol/L (98-107); CREATININE 0.67 mg/dL (0.60-1.30); GLOMERULAR FILTR. RATE CALC > 60 mL/min (>60); GLUCOSE,RANDOM 107 mg/dL (70-110); POTASSIUM 4.5 mmol/L (3.5-5.1); SODIUM SERUM 141 mmol/L (136-145); UREA NITROGEN, BLOOD 12 mg/dL (7-18)
[2020-11-10 14:32] LABS: ALANINE AMINOTRANSFERASE 22 U/L (12-78); ALKALINE PHOSPHATASE 86 U/L (46-116); ASPARTATE AMINOTRANSFERASE 22 U/L (15-37); BILIRUBIN,TOTAL 0.2 mg/dL (0.1-1.0); TOTAL PROTEIN, SERUM 6.6 g/dL (6.4-8.2)
[2020-11-10 14:50] LABS: PLATELET COUNT (AUTO) 209 K/uL (150-450)
[2020-11-10 14:53] LABS: APPEARANCE,URINE SLIGHTLY CLOUDY (CLEAR); BACTERIA,URINE Moderate /HPF (None Seen); RBC,URINE 0-2 /HPF (0-2)
== END 2020-11-10 15:31 | disposition left against medical advice (07) ==
LOC: EMS 12:24
DX: N39.0 Urinary tract infection, site not specified (principal); J45.909 Unspecified asthma, uncomplicated; Z79.899 Other long term (current) drug therapy; Z88.6 Allergy status to analgesic agent; Z88.1 Allergy status to other antibiotic agents; Z88.0 Allergy status to penicillin
CPT/HCPCS: 36415; 80053; 81001; 85025; 85049; 87077; 87086; 96374; 99283; J1200; 87186

== ENCOUNTER 2020-12-21 07:52 | Emergency (ER) | payer MEDICAID ==
[~2020-12-21] VITALS: Ht 144.8 cm; Wt 81.8 kg
[2020-12-21 08:21] VITALS: BP 105/67
[2020-12-21] MEDS ORDERED: DiphenhydrAMINE HCL 50 MG/ML VIAL IM ONE (08:45)
== END 2020-12-21 09:04 | disposition home or self-care (01) ==
LOC: EMS 07:52
DX: A49.02 Methicillin resistant Staphylococcus aureus infection, unspecified site (principal); J45.909 Unspecified asthma, uncomplicated; Z88.6 Allergy status to analgesic agent; Z88.0 Allergy status to penicillin; Z88.5 Allergy status to narcotic agent
CPT/HCPCS: 96372; 99283; J1200

== ENCOUNTER → 2021-01-15 | Emergency (ER) | payer MEDICAID ==
[~2021-01-15] VITALS: Ht 144.8 cm; Wt 64.1 kg
[~2021-01-15] MED LIST changes: +ALBU8HFA IH; +CARB-60 PO; +LEVE500T20 PO; -LEVE500T53 PO; +MECL-226 PO
[2021-01-15 21:01] VITALS: BP 108/61
[2021-01-15] MEDS: SODIUM CHLORIDE 0.9% 1,000 ML IV ONE (21:06)
[2021-01-15] MEDS: ACETAMINOPHEN 1000 MG/ISO-OSM 100 ML IV ONE (21:06)
[2021-01-15 21:23] LABS: BASOPHILS % (AUTO) 0.7 % (0.0-2.0); EOSINOPHILS % (AUTO) 1.6 % (1.0-6.0); HEMATOCRIT 37.7 % (36-46); HEMOGLOBIN 12.5 g/dL (12.0-16.0); LYMPHOCYTES # (AUTO) 1.6 K/uL (1.0-4.8); LYMPHOCYTES % (AUTO) 33.3 % (22.0-44.0); MEAN CORPUSCULAR HEMOGLOBIN 30.4 pg (26.0-34.0); MEAN CORPUSCULAR HGB CONC 33.1 G/dL (31.0-37.0); MEAN CORPUSCULAR VOLUME 92 fL (80-100); MONOCYTES # (AUTO) 0.4 K/uL (0.1-1.0); MONOCYTES % (AUTO) 7.7 % (2.0-9.0); NEUTROPHILS # (AUTO) 2.7 K/uL (1.8-7.7); NEUTROPHILS % (AUTO) 56.7 % (40.0-70.0); PLATELET COUNT (AUTO) 229 K/uL (150-450); RED CELL DISTRIBUTION WIDTH 13.1 % (11.5-14.5)
[2021-01-15 21:31] LABS: APPEARANCE,URINE CLEAR (CLEAR); BILIRUBIN,URINE NEGATIVE (NEGATIVE); GLUCOSE, URINE (UA) NEGATIVE (NEGATIVE); KETONES,URINE NEGATIVE (NEGATIVE); LEUKOCYTE ESTERASE ,URINE SMALL (NEGATIVE); NITRATE,URINE POSITIVE (NEGATIVE); OCCULT BLOOD,URINE NEGATIVE (NEGATIVE); PH,URINE 5.5 (5.0-8.0); PROTEIN,URINE NEGATIVE (NEGATIVE); UROBILINOGEN,URINE 0.2 mg/dL (<=1.0)
[2021-01-15] MEDS: DiphenhydrAMINE HCL 50 MG/ML VIAL IVP ONE (21:31)
[2021-01-15 21:37] LABS: ANION GAP 10 mmol/L (8-16); CARBON DIOXIDE 20 mmol/L (22-29); CHLORIDE 109 mmol/L (98-107); GLUCOSE,RANDOM 101 mg/dL (70-110); POTASSIUM 3.3 mmol/L (3.5-5.1); SODIUM SERUM 139 mmol/L (136-145); UREA NITROGEN, BLOOD 10 mg/dL (7-18)
[2021-01-15 21:38] LABS: CALCIUM, TOTAL 8.3 mg/dL (8.8-10.5); CREATININE 0.83 mg/dL (0.60-1.30); GLOMERULAR FILTR. RATE CALC > 60 mL/min (>60)
[2021-01-15 21:40] LABS: BACTERIA,URINE Many /HPF (None Seen); RBC,URINE None Seen /HPF (0-2); SQUAMOUS EPITHELIAL CELL,UR Few /LPF (None Seen); TRANSITIONAL EPI CELLS,URINE None Seen /LPF (None Seen); YEAST,URINE None Seen /HPF (None Seen)
[2021-01-15 21:41] LABS: CALCIUM OXALATE CRYSTALS,UR None Seen /LPF (None Seen); CALCIUM PHOSPHATE CRYSTALS,UR None Seen /LPF (None Seen); OTHER CRYSTALS,URINE None Seen /LPF (None Seen); RENAL EPITHELIAL CELLS,URINE None Seen /LPF (None Seen); TRIPLE PHOSPHATE CRYSTAL,UR None Seen /LPF (None Seen); URIC ACID CRYSTALS,URINE None Seen /LPF (None Seen)
[2021-01-15 21:44] LABS: ALANINE AMINOTRANSFERASE 14 U/L (12-78); ALKALINE PHOSPHATASE 72 U/L (46-116); ASPARTATE AMINOTRANSFERASE 15 U/L (15-37); BILIRUBIN,TOTAL 0.2 mg/dL (0.1-1.0); LIPASE 110 U/L (73-393); TOTAL PROTEIN, SERUM 6.1 g/dL (6.4-8.2)
== END | disposition home or self-care (01) ==
LOC: EMS 20:21
DX: N39.0 Urinary tract infection, site not specified (principal); J45.909 Unspecified asthma, uncomplicated; Z88.6 Allergy status to analgesic agent; Z88.0 Allergy status to penicillin; Z88.1 Allergy status to other antibiotic agents; Z88.8 Allergy status to other drugs, medicaments and biological substances; Z79.899 Other long term (current) drug therapy
CPT/HCPCS: 36415; 80053; 81001; 83690; 85025; 87086; 96365; 96375; 99284; J0131; J1200; J7030; 87077

== ENCOUNTER 2021-02-27 13:53 | Emergency (ER) | payer MEDICAID ==
[~2021-02-27] VITALS: Ht 144.8 cm; Wt 63.6 kg
[~2021-02-27 13:53] MED LIST changes: -CARB200T6 PO
[2021-02-27] MEDS ORDERED: ONDANSETRON HCL 4 MG/2 ML VIAL IVP ONE (14:45)
[2021-02-27] MEDS ORDERED: SODIUM CHLORIDE 0.9% 1,000 ML IV ONE (14:45)
[2021-02-27] MEDS ORDERED: DiphenhydrAMINE HCL 50 MG/ML VIAL IVP ONE (14:45)
[2021-02-27 14:46] LABS: BASOPHILS % (AUTO) 0.4 % (0.0-2.0); EOSINOPHILS % (AUTO) 1.1 % (1.0-6.0); HEMATOCRIT 40.2 % (36-46); HEMOGLOBIN 13.4 g/dL (12.0-16.0); LYMPHOCYTES # (AUTO) 1.2 K/uL (1.0-4.8); LYMPHOCYTES % (AUTO) 30.2 % (22.0-44.0); MEAN CORPUSCULAR HEMOGLOBIN 30.5 pg (26.0-34.0); MEAN CORPUSCULAR HGB CONC 33.3 G/dL (31.0-37.0); MEAN CORPUSCULAR VOLUME 92 fL (80-100); MONOCYTES # (AUTO) 0.5 K/uL (0.1-1.0); MONOCYTES % (AUTO) 11.5 % (2.0-9.0); NEUTROPHILS # (AUTO) 2.3 K/uL (1.8-7.7); NEUTROPHILS % (AUTO) 56.8 % (40.0-70.0); PLATELET COUNT (AUTO) 222 K/uL (150-450); RED BLOOD CELL COUNT(AUTO) 4.38 MIL/uL (4.00-5.20); RED CELL DISTRIBUTION WIDTH 13.3 % (11.5-14.5)
[2021-02-27 14:55] LABS: ANION GAP 8 mmol/L (8-16); CALCIUM, TOTAL 8.6 mg/dL (8.8-10.5); CARBON DIOXIDE 24 mmol/L (22-29); CHLORIDE 107 mmol/L (98-107); CREATININE 0.79 mg/dL (0.60-1.30); GLOMERULAR FILTR. RATE CALC > 60 mL/min (>60); GLUCOSE,RANDOM 109 mg/dL (70-110); POTASSIUM 3.4 mmol/L (3.5-5.1); SODIUM SERUM 139 mmol/L (136-145); UREA NITROGEN, BLOOD 11 mg/dL (7-18)
[2021-02-27 15:01] LABS: ALANINE AMINOTRANSFERASE 18 U/L (12-78); ALKALINE PHOSPHATASE 65 U/L (46-116); ASPARTATE AMINOTRANSFERASE 10 U/L (15-37); BILIRUBIN,TOTAL 0.2 mg/dL (0.1-1.0); LIPASE 131 U/L (73-393); TOTAL PROTEIN, SERUM 6.2 g/dL (6.4-8.2)
[2021-02-27 15:08] LABS: LACTIC ACID 1.7 mmol/L (0.4-2.0)
[2021-02-27 15:18] LABS: APPEARANCE,URINE CLEAR (CLEAR); BILIRUBIN,URINE NEGATIVE (NEGATIVE); GLUCOSE, URINE (UA) NEGATIVE (NEGATIVE); KETONES,URINE NEGATIVE (NEGATIVE); LEUKOCYTE ESTERASE ,URINE NEGATIVE (NEGATIVE); NITRATE,URINE NEGATIVE (NEGATIVE); OCCULT BLOOD,URINE NEGATIVE (NEGATIVE); PH,URINE 6.5 (5.0-8.0); PROTEIN,URINE NEGATIVE (NEGATIVE); UROBILINOGEN,URINE 0.2 mg/dL (<=1.0)
[2021-02-27 15:24] LABS: BACTERIA,URINE None Seen /HPF (None Seen); RBC,URINE 0-2 /HPF (0-2); WBC,URINE 0-2 /HPF (0-5)
[2021-02-27 15:25] LABS: SQUAMOUS EPITHELIAL CELL,UR Few /LPF (None Seen)
[2021-02-27] MEDS ORDERED: MORPHINE SULFATE 2 MG/ML SYRINGE IVP ONE (15:45)
[2021-02-27] MEDS ORDERED: IOHEXOL 350 MG/ML 100 ML VIAL ONE (15:56)
[2021-02-27] MEDS ORDERED: SODIUM CHLORIDE 0.9% 100 ML ONE (15:56)
[2021-02-27 16:30] VITALS: BP 115/73
== END 2021-02-27 17:32 | disposition home or self-care (01) ==
LOC: EMS 13:53
DX: R10.9 Unspecified abdominal pain (principal); J44.9 Chronic obstructive pulmonary disease, unspecified; Z87.440 Personal history of urinary (tract) infections
CPT/HCPCS: 36415; 74177; 80053; 81001; 83605; 83690; 85025; 87040; 96361; 96374; 96375; 99285; J1200; J2270; J2405; J7030; J7050; Q9967

== ENCOUNTER 2021-03-02 00:40 | Emergency (ER) | payer MEDICAID ==
[~2021-03-02] VITALS: Ht 144.8 cm; Wt 72.7 kg
[2021-03-02] MEDS ORDERED: ONDANSETRON HCL 4 MG/2 ML VIAL IVP ONE (03:15)
[2021-03-02] MEDS ORDERED: SODIUM CHLORIDE 0.9% 1,000 ML IV ONE (03:15)
[2021-03-02] MEDS ORDERED: DICYCLOMINE HCL 10 MG/ML 2 ML AMP IM ONE (03:15)
[2021-03-02 03:29] LABS: BASOPHILS % (AUTO) 0.9 % (0.0-2.0); EOSINOPHILS % (AUTO) 2.5 % (1.0-6.0); HEMATOCRIT 38.1 % (36-46); LYMPHOCYTES # (AUTO) 1.5 K/uL (1.0-4.8); LYMPHOCYTES % (AUTO) 34.5 % (22.0-44.0); MEAN CORPUSCULAR HEMOGLOBIN 30.6 pg (26.0-34.0); MEAN CORPUSCULAR VOLUME 90 fL (80-100); MONOCYTES # (AUTO) 0.4 K/uL (0.1-1.0); NEUTROPHILS # (AUTO) 2.3 K/uL (1.8-7.7); NEUTROPHILS % (AUTO) 53.1 % (40.0-70.0); PLATELET COUNT (AUTO) 224 K/uL (150-450); RED BLOOD CELL COUNT(AUTO) 4.24 MIL/uL (4.00-5.20)
[2021-03-02 03:42] LABS: ALBUMIN 3.2 g/dL (3.4-5.0); BILIRUBIN,TOTAL 0.2 mg/dL (0.1-1.0); CALCIUM, TOTAL 9.3 mg/dL (8.8-10.5); CREATININE 1.05 mg/dL (0.60-1.30); POTASSIUM 3.8 mmol/L (3.5-5.1); TOTAL PROTEIN, SERUM 6.5 g/dL (6.4-8.2)
[2021-03-02 03:51] LABS: COVID AG,FIA SOURCE NASOPHARYNGEAL
[2021-03-02 05:25] LABS: APPEARANCE,URINE CLOUDY (CLEAR); BILIRUBIN,URINE NEGATIVE (NEGATIVE); GLUCOSE, URINE (UA) NEGATIVE (NEGATIVE); KETONES,URINE NEGATIVE (NEGATIVE); LEUKOCYTE ESTERASE ,URINE NEGATIVE (NEGATIVE); NITRATE,URINE NEGATIVE (NEGATIVE); OCCULT BLOOD,URINE NEGATIVE (NEGATIVE); PROTEIN,URINE NEGATIVE (NEGATIVE); UROBILINOGEN,URINE 0.2 mg/dL (<=1.0)
[2021-03-02 05:35] LABS: AMORPHOUS SEDIMENT,UR Few /LPF (None Seen); BACTERIA,URINE None Seen /HPF (None Seen); RBC,URINE None Seen /HPF (0-2); SQUAMOUS EPITHELIAL CELL,UR Few /LPF (None Seen); WBC,URINE None Seen /HPF (0-5)
[2021-03-02] MEDS ORDERED: DiphenhydrAMINE HCL 25 MG CAPSULE PO ONE (05:45)
[2021-03-02 06:27] VITALS: BP 112/57
== END 2021-03-02 06:15 | disposition home or self-care (01) ==
LOC: EMS 00:42
DX: R10.31 Right lower quadrant pain (principal); R10.32 Left lower quadrant pain; F17.210 Nicotine dependence, cigarettes, uncomplicated; Z20.822 Contact with and (suspected) exposure to COVID-19
CPT/HCPCS: 36415; 80053; 81001; 83690; 85025; 87426; 96361; 96372; 96374; 99283; J0500; J2405; 99284

== ENCOUNTER 2021-03-17 07:04 | Emergency (ER) | payer MEDICAID ==
[~2021-03-17] VITALS: Ht 144.8 cm; Wt 68.2 kg
[2021-03-17] MEDS ORDERED: DiphenhydrAMINE HCL 50 MG/ML VIAL IVP ONE (08:15)
[2021-03-17] MEDS ORDERED: ONDANSETRON HCL 4 MG/2 ML VIAL IVP ONE (08:15)
[2021-03-17 08:24] LABS: BASOPHILS % (AUTO) 0.8 % (0.0-2.0); EOSINOPHILS % (AUTO) 2.5 % (1.0-6.0); HEMOGLOBIN 12.6 g/dL (12.0-16.0); LYMPHOCYTES # (AUTO) 1.6 K/uL (1.0-4.8); LYMPHOCYTES % (AUTO) 33.1 % (22.0-44.0); MEAN CORPUSCULAR HEMOGLOBIN 30.6 pg (26.0-34.0); MEAN CORPUSCULAR HGB CONC 33.9 G/dL (31.0-37.0); MEAN CORPUSCULAR VOLUME 90 fL (80-100); MONOCYTES # (AUTO) 0.5 K/uL (0.1-1.0); MONOCYTES % (AUTO) 10.1 % (2.0-9.0); NEUTROPHILS # (AUTO) 2.5 K/uL (1.8-7.7); NEUTROPHILS % (AUTO) 53.5 % (40.0-70.0); PLATELET COUNT (AUTO) 243 K/uL (150-450); RED BLOOD CELL COUNT(AUTO) 4.11 MIL/uL (4.00-5.20); RED CELL DISTRIBUTION WIDTH 13.3 % (11.5-14.5)
[2021-03-17 08:32] LABS: ANION GAP 8 mmol/L (8-16); CALCIUM, TOTAL 8.9 mg/dL (8.8-10.5); CARBON DIOXIDE 24 mmol/L (22-29); CHLORIDE 110 mmol/L (98-107); CREATININE 0.81 mg/dL (0.60-1.30); GLOMERULAR FILTR. RATE CALC > 60 mL/min (>60); GLUCOSE,RANDOM 107 mg/dL (70-110); POTASSIUM 3.8 mmol/L (3.5-5.1); SODIUM SERUM 142 mmol/L (136-145); UREA NITROGEN, BLOOD 15 mg/dL (7-18)
[2021-03-17 08:38] LABS: ALANINE AMINOTRANSFERASE 23 U/L (12-78); ALBUMIN 3.2 g/dL (3.4-5.0); ALKALINE PHOSPHATASE 86 U/L (46-116); ASPARTATE AMINOTRANSFERASE 15 U/L (15-37); BILIRUBIN,TOTAL 0.1 mg/dL (0.1-1.0); LIPASE 93 U/L (73-393); TOTAL PROTEIN, SERUM 6.4 g/dL (6.4-8.2)
[2021-03-17] MEDS ORDERED: LEVE500T8 PO (09:18)
[2021-03-17] MEDS ORDERED: TOPI100T37 PO (09:18)
[2021-03-17] MEDS ORDERED: DIPH12.55 PO (09:18)
[2021-03-17 10:24] LABS: APPEARANCE,URINE CLEAR (CLEAR); BACTERIA,URINE None Seen /HPF (None Seen); BILIRUBIN,URINE NEGATIVE (NEGATIVE); GLUCOSE, URINE (UA) NEGATIVE (NEGATIVE); KETONES,URINE NEGATIVE (NEGATIVE); LEUKOCYTE ESTERASE ,URINE NEGATIVE (NEGATIVE); NITRATE,URINE NEGATIVE (NEGATIVE); OCCULT BLOOD,URINE NEGATIVE (NEGATIVE); PH,URINE 6.5 (5.0-8.0); PROTEIN,URINE NEGATIVE (NEGATIVE); RBC,URINE None Seen /HPF (0-2); UROBILINOGEN,URINE 0.2 mg/dL (<=1.0); WBC,URINE None Seen /HPF (0-5)
[2021-03-17] MEDS ORDERED: MORPHINE SULFATE 2 MG/ML SYRINGE IVP ONE (11:00)
[2021-03-17 12:28] VITALS: BP 104/70
== END 2021-03-17 12:51 | disposition home or self-care (01) ==
LOC: EMS 07:04
DX: R10.9 Unspecified abdominal pain (principal); I50.9 Heart failure, unspecified; F17.210 Nicotine dependence, cigarettes, uncomplicated; Z88.0 Allergy status to penicillin; Z88.2 Allergy status to sulfonamides; Z88.6 Allergy status to analgesic agent; Z79.899 Other long term (current) drug therapy
CPT/HCPCS: 36415; 80053; 81001; 83690; 85025; 96374; 96375; 99285; J1200; J2270; J2405

== ENCOUNTER 2021-03-21 01:59 | Emergency (ER) | payer MEDICAID ==
[~2021-03-21] VITALS: Ht 144.8 cm; Wt 68.2 kg
[~2021-03-21 01:59] MED LIST changes: +DIPH12.55 PO; +LEVE500T8 PO
[2021-03-21] MEDS ORDERED: DiphenhydrAMINE HCL 25 MG CAPSULE PO ONE (02:15)
[2021-03-21] MEDS ORDERED: PROPARACAINE HCL 0.5% 15 ML OPHTHALMIC SOLUTION OD ONE (02:15)
[2021-03-21] MEDS ORDERED: ERYTHROMYCIN 0.5% 3.5 GM TUBE OPHTHALMIC OINTMENT OD ONE (02:15)
[2021-03-21] MEDS ORDERED: DiphenhydrAMINE HCL 50 MG/ML VIAL IM STA (02:49)
[2021-03-21] MEDS ORDERED: ALBUTEROL SULFATE HFA 90 MCG/PUFF 8 GM INHALER IH ONE (03:00)
[2021-03-21 03:05] LABS: COVID AG,FIA SOURCE NASOPHARYNGEAL
[2021-03-21 03:45] VITALS: BP 150/78
[2021-03-21 04:12] LABS: INFLUENZA TYPE A NEGATIVE FOR TYPE A (NEGATIVE); INFLUENZA TYPE B NEGATIVE FOR TYPE B (NEGATIVE)
[2021-03-21] MEDS ORDERED: DIPH25 PO (18:07)
[2021-03-21] MEDS ORDERED: FLUT1BLS12 IH (18:07)
[2021-03-21] MEDS ORDERED: MECL-160 PO (18:08)
[2021-03-21] MEDS ORDERED: ACYC400T20 PO (18:09)
[2021-03-21] MEDS ORDERED: HYDR30CR3 TP (18:09)
[2021-03-21] MEDS ORDERED: MACR100 PO (18:09)
[2021-03-21] MEDS ORDERED: ERYT3.5O8 OD (18:10)
== END 2021-03-21 04:36 | disposition home or self-care (01) ==
LOC: EMS 02:01
DX: R05.9 Cough, unspecified (principal); H57.12 Ocular pain, left eye; F17.210 Nicotine dependence, cigarettes, uncomplicated; Z20.822 Contact with and (suspected) exposure to COVID-19; Z88.8 Allergy status to other drugs, medicaments and biological substances; Z88.0 Allergy status to penicillin; Z88.5 Allergy status to narcotic agent; Z88.6 Allergy status to analgesic agent; Z79.899 Other long term (current) drug therapy
CPT/HCPCS: 71045; 87426; 87804; 94640; 96372; 99284; J1200; U0003; J3535

== ENCOUNTER 2021-03-21 17:26 | Emergency (ER) | payer MEDICAID ==
[~2021-03-21] VITALS: Ht 144.8 cm; Wt 68.2 kg
[2021-03-21] MEDS ORDERED: FLUT1BLS12 IH (18:07)
[2021-03-21] MEDS ORDERED: DIPH25 PO (18:07)
[2021-03-21] MEDS: FLUORESCEIN SODIUM 1 MG STRIP OD ONE (18:08)
[2021-03-21] MEDS ORDERED: MECL-160 PO (18:08)
[2021-03-21] MEDS ORDERED: MACR100 PO (18:09)
[2021-03-21] MEDS ORDERED: ACYC400T20 PO (18:09)
[2021-03-21] MEDS ORDERED: HYDR30CR3 TP (18:09)
[2021-03-21] MEDS ORDERED: ERYT3.5O8 OD (18:10)
[2021-03-21] MEDS: MORPHINE SULFATE 2 MG/ML SYRINGE IVP ONE ×3 (18:13→23:20)
[2021-03-21 18:17] LABS: BASOPHILS % (AUTO) 0.5 % (0.0-2.0); EOSINOPHILS % (AUTO) 1.8 % (1.0-6.0); HEMATOCRIT 42.9 % (36-46); HEMOGLOBIN 14.8 g/dL (12.0-16.0); LYMPHOCYTES # (AUTO) 1.2 K/uL (1.0-4.8); LYMPHOCYTES % (AUTO) 22.3 % (22.0-44.0); MEAN CORPUSCULAR HEMOGLOBIN 30.8 pg (26.0-34.0); MEAN CORPUSCULAR HGB CONC 34.4 G/dL (31.0-37.0); MEAN CORPUSCULAR VOLUME 90 fL (80-100); MONOCYTES # (AUTO) 0.6 K/uL (0.1-1.0); MONOCYTES % (AUTO) 11.3 % (2.0-9.0); NEUTROPHILS # (AUTO) 3.6 K/uL (1.8-7.7); NEUTROPHILS % (AUTO) 64.1 % (40.0-70.0); PLATELET COUNT (AUTO) 258 K/uL (150-450); RED BLOOD CELL COUNT(AUTO) 4.79 MIL/uL (4.00-5.20); RED CELL DISTRIBUTION WIDTH 13.4 % (11.5-14.5)
[2021-03-21] MEDS: PROPARACAINE HCL 0.5% 15 ML OPHTHALMIC SOLUTION OD ONE (18:19)
[2021-03-21] MEDS: VANCOMYCIN HCL 1 GM/D5% WATER 200 ML IV ONE (18:36)
[2021-03-21] MEDS: LEVOFLOXACIN 750 MG/D5% WATER 150 ML IV ONE (18:38)
[2021-03-21 18:39] LABS: ANION GAP 10 mmol/L (8-16); CALCIUM, TOTAL 9.3 mg/dL (8.8-10.5); CARBON DIOXIDE 26 mmol/L (22-29); CHLORIDE 105 mmol/L (98-107); CREATININE 0.95 mg/dL (0.60-1.30); GLOMERULAR FILTR. RATE CALC > 60 mL/min (>60); GLUCOSE,RANDOM 108 mg/dL (70-110); POTASSIUM 3.7 mmol/L (3.5-5.1); SODIUM SERUM 141 mmol/L (136-145); UREA NITROGEN, BLOOD 19 mg/dL (7-18)
[2021-03-21 18:48] LABS: COVID AG,FIA SOURCE NASOPHARYNGEAL
[2021-03-21 18:51] LABS: ALANINE AMINOTRANSFERASE 36 U/L (12-78); ALBUMIN 3.7 g/dL (3.4-5.0); ALKALINE PHOSPHATASE 91 U/L (46-116); ASPARTATE AMINOTRANSFERASE 29 U/L (15-37); BILIRUBIN,TOTAL 0.2 mg/dL (0.1-1.0); HCG,QUANTITATIVE 2 mIU/mL (0-6); TOTAL PROTEIN, SERUM 7.8 g/dL (6.4-8.2)
[2021-03-21] MEDS ORDERED: IOHEXOL 350 MG/ML 100 ML VIAL ONE (18:56)
[2021-03-21] MEDS ORDERED: SODIUM CHLORIDE 0.9% 100 ML ONE (18:56)
[2021-03-21 19:10] LABS: LACTIC ACID 0.7 mmol/L (0.4-2.0)
[2021-03-21] MEDS: ONDANSETRON HCL 4 MG/2 ML VIAL IVP ONE (19:57)
[2021-03-21] MEDS: DiphenhydrAMINE HCL 50 MG/ML VIAL IVP ONE ×2 (20:07→23:39)
[2021-03-21] MEDS: SODIUM CHLORIDE 0.9% 1,000 ML IV ONE (23:19)
[2021-03-22] MEDS ORDERED: HYDROmorphone 2 MG/ML VIAL IVP ONE (05:15)
[2021-03-22 05:58] VITALS: BP 115/58
== END 2021-03-22 06:30 | disposition short-term general hospital (02) ==
LOC: EMS 17:30
DX: H05.011 Cellulitis of right orbit (principal); I42.9 Cardiomyopathy, unspecified; I50.9 Heart failure, unspecified; G35 Multiple sclerosis; Z20.822 Contact with and (suspected) exposure to COVID-19
CPT/HCPCS: 36415; 70470; 70481; 80053; 83605; 84702; 85025; 87040; 87426; 96361; 96365; 96366; 96368; 96375; 96376; 99285; J1200; J1956; J2270; J2405; J3370; J7030; J7050; Q9967; J1170

== ENCOUNTER 2021-09-24 07:35 | Emergency (ER) | payer MEDICAID ==
[~2021-09-24] VITALS: Ht 144.8 cm; Wt 72.7 kg
[~2021-09-24 07:35] MED LIST changes: +ACYC400T20 PO; -DIPH12.55 PO; +DIPH25 PO; +ERYT3.5O8 OD; +FLUT1BLS12 IH; +HYDR30CR3 TP; -LEVE500T20 PO; +MECL-160 PO; -MECL-226 PO; +NITR-75 PO
[2021-09-24 07:44] VITALS: BP 117/77
== END 2021-09-24 08:57 | disposition left against medical advice (07) ==
LOC: EMS 07:35
DX: R11.2 Nausea with vomiting, unspecified (principal); Z53.21 Procedure and treatment not carried out due to patient leaving prior to being seen by health care provider

== ENCOUNTER 2023-03-08 20:39 | Emergency (ER) | payer MEDICAID ==
[~2023-03-08] VITALS: Ht 165.1 cm; Wt 61.4 kg
[~2023-03-08 20:39] MED LIST changes: +ALBU18HF12 IH; -ALBU8HFA IH; -DIPH25 PO; -ERYT3.5O8 OD; -FLUT1BLS12 IH; -HYDR30CR3 TP; -MECL-160 PO; +MECL-302 PO; -NITR-75 PO
[2023-03-08 20:59] VITALS: TEMP 98.2
[2023-03-08] MEDS ORDERED: METH-661 PO (23:58)
[2023-03-08 23:59] LABS: BASOPHILS % (AUTO) 0.8 % (0.0-2.0); EOSINOPHILS % (AUTO) 1.6 % (1.0-6.0); HEMATOCRIT 39.8 % (36-46); HEMOGLOBIN 13.5 g/dL (12.0-16.0); LYMPHOCYTES # (AUTO) 0.6 K/uL (1.0-4.8); LYMPHOCYTES % (AUTO) 11.4 % (22.0-44.0); MEAN CORPUSCULAR HEMOGLOBIN 30.8 pg (26.0-34.0); MEAN CORPUSCULAR VOLUME 91 fL (80-100); MONOCYTES # (AUTO) 0.5 K/uL (0.1-1.0); MONOCYTES % (AUTO) 9.8 % (2.0-9.0); NEUTROPHILS # (AUTO) 4.3 K/uL (1.8-7.7); NEUTROPHILS % (AUTO) 76.4 % (40.0-70.0); PLATELET COUNT (AUTO) 267 K/uL (150-450); RED CELL DISTRIBUTION WIDTH 13.8 % (11.5-14.5); WHITE BLOOD COUNT (AUTO) 5.6 K/uL (4.5-11.0)
[2023-03-09] MEDS ORDERED: ACETAMINOPHEN 500 MG TABLET PO ONE
[2023-03-09] MEDS ORDERED: METHOCARBAMOL 500 MG TABLET PO ONE
[2023-03-09 00:14] LABS: ALANINE AMINOTRANSFERASE 29 U/L (12-78); ALBUMIN 3.4 g/dL (3.4-5.0); ALKALINE PHOSPHATASE 100 U/L (46-116); ANION GAP 13 mmol/L (8-16); ASPARTATE AMINOTRANSFERASE 30 U/L (15-37); BILIRUBIN,TOTAL 0.5 mg/dL (0.1-1.0); CALCIUM, TOTAL 9.6 mg/dL (8.8-10.5); CARBON DIOXIDE 26 mmol/L (22-29); CHLORIDE 102 mmol/L (98-107); CREATININE 0.75 mg/dL (0.60-1.30); GLOMERULAR FILTR. RATE CALC > 60 mL/min (>60); GLUCOSE,RANDOM 121 mg/dL (70-110); SODIUM SERUM 141 mmol/L (136-145); TOTAL PROTEIN, SERUM 7.8 g/dL (6.4-8.2); UREA NITROGEN, BLOOD 15 mg/dL (7-18)
[2023-03-09 00:16] LABS: TROPONIN I-HIGH SENSITIVITY 29 ng/L (<51)
[2023-03-09 00:19] LABS: ALCOHOL, BLOOD (SERUM) < 3 mg/dL (0-10)
[2023-03-09 00:20] LABS: POTASSIUM 2.8 mmol/L (3.5-5.1)
[2023-03-09] MEDS ORDERED: POTA-364 PO (00:25)
[2023-03-09] MEDS ORDERED: POTASSIUM CHLORIDE 20 MEQ ER TABLET PO ONE (00:30)
[2023-03-09 00:32] VITALS: BP 112/67; PULSE 69; RESP 22
== END 2023-03-09 01:40 | disposition home or self-care (01) ==
LOC: EMS 20:40
DX: E87.6 Hypokalemia (principal); M54.50 Low back pain, unspecified; F17.210 Nicotine dependence, cigarettes, uncomplicated; Z98.890 Other specified postprocedural states; Z88.6 Allergy status to analgesic agent; Z88.5 Allergy status to narcotic agent; Z88.0 Allergy status to penicillin; Z88.2 Allergy status to sulfonamides
CPT/HCPCS: 99284; 80053; 84484; 85025; 36415; G0480

== ENCOUNTER 2024-01-12 19:38 | Inpatient (IN) | payer MEDICAID ==
[~2024-01-12] VITALS: Ht 144.8 cm; Wt 77.1 kg
[~2024-01-12 19:38] MED LIST changes: -ACYC400T20 PO; +ATOR20TA PO; +CLOP75TA60 PO; +FURO-152 PO; -FURO20 PO; +PROM12.511 PR
[2024-01-12 20:21] LABS: GLUCOMETER DEV NAME(LOC) ERT.6; GLUCOSE,POINT OF CARE 93 MG/DL (70-110)
[2024-01-12] MEDS: LORazepam 2 MG/ML VIAL IVP ONE (20:54)
[2024-01-12] MEDS: ONDANSETRON HCL 4 MG/2 ML VIAL IVP ONE (20:54)
[2024-01-12] MEDS: SODIUM CHLORIDE 0.9% 1,000 ML IV ONE ×2 (20:54→22:06)
[2024-01-12 20:58] LABS: BASOPHILS % (AUTO) 0.9 % (0.0-2.0); EOSINOPHILS % (AUTO) 1.8 % (1.0-6.0); HEMATOCRIT 38.3 % (36-46); HEMOGLOBIN 12.9 g/dL (12.0-16.0); LYMPHOCYTES # (AUTO) 2.1 K/uL (1.0-4.8); LYMPHOCYTES % (AUTO) 31.4 % (22.0-44.0); MEAN CORPUSCULAR HEMOGLOBIN 29.9 pg (26.0-34.0); MEAN CORPUSCULAR HGB CONC 33.7 G/dL (31.0-37.0); MEAN CORPUSCULAR VOLUME 89 fL (80-100); MONOCYTES # (AUTO) 0.6 K/uL (0.1-1.0); MONOCYTES % (AUTO) 9.2 % (2.0-9.0); NEUTROPHILS # (AUTO) 3.8 K/uL (1.8-7.7); NEUTROPHILS % (AUTO) 56.7 % (40.0-70.0); PLATELET COUNT (AUTO) 263 K/uL (150-450); RED BLOOD CELL COUNT(AUTO) 4.31 MIL/uL (4.00-5.20); RED CELL DISTRIBUTION WIDTH 12.9 % (11.5-14.5); WHITE BLOOD COUNT (AUTO) 6.8 K/uL (4.5-11.0)
[2024-01-12 21:07] LABS: ANION GAP 6 mmol/L (8-16); CALCIUM, TOTAL 8.4 mg/dL (8.8-10.5); CARBON DIOXIDE 26 mmol/L (22-29); CHLORIDE 107 mmol/L (98-107); CREATININE 0.59 mg/dL (0.60-1.30); GLOMERULAR FILTR. RATE CALC > 60 mL/min (>60); GLUCOSE,RANDOM 100 mg/dL (70-110); POTASSIUM 4.3 mmol/L (3.5-5.1); SODIUM SERUM 138 mmol/L (136-145); UREA NITROGEN, BLOOD 14 mg/dL (7-18)
[2024-01-12] MEDS: DiphenhydrAMINE HCL 50 MG/ML VIAL IVP ONE (21:14)
[2024-01-12 21:15] LABS: TROPONIN I-HIGH SENSITIVITY 9 ng/L (<51)
[2024-01-12] MEDS ORDERED: MECLIZINE HCL 25 MG TABLET PO PRN (21:30)
[2024-01-12] MEDS ORDERED: ACETAMINOPHEN 325 MG TABLET PO PRN (21:30)
[2024-01-12] MEDS ORDERED: IOHEXOL 350 MG/ML 100 ML VIAL ONE (21:47)
[2024-01-12] MEDS ORDERED: SODIUM CHLORIDE 0.9% 100 ML ONE (21:47)
[2024-01-12 21:50] LABS: INFLUENZA A-RTPCR,COMBO NEGATIVE (NEGATIVE); INFLUENZA B-RTPCR,COMBO NEGATIVE (NEGATIVE); RESPIRATORY SYNCYTIAL VRS-PCR NEGATIVE (NEGATIVE); SARS COVID19 RTPCR, COMBO NEGATIVE (NEGATIVE)
[2024-01-12 21:52] LABS: CHOL/HDL RATIO 3.3 (3.9-5.7); CHOLESTEROL 153 mg/dL (131-200); HDL CHOLESTEROL 47 mg/dL (40-60); LDL CHOL (CALC.) 50 mg/dL (0-130); TRIGLYCERIDES 281 mg/dL (15-150)
[2024-01-12] MEDS: CarBAMazepine 200 MG ER TABLET PO SCH (22:18)
[2024-01-12] MEDS: HYDROmorphone HCL 2 MG/ML SYRINGE IVP ONE (22:18)
[2024-01-12 22:47] LABS: APPEARANCE,URINE CLEAR (CLEAR); BILIRUBIN,URINE NEGATIVE (NEGATIVE); COLOR,URINE COLORLESS (YELLOW); GLUCOSE, URINE (UA) NEGATIVE (NEGATIVE); KETONES,URINE NEGATIVE (NEGATIVE); LEUKOCYTE ESTERASE ,URINE SMALL (NEGATIVE); NITRATE,URINE NEGATIVE (NEGATIVE); OCCULT BLOOD,URINE NEGATIVE (NEGATIVE); PROTEIN,URINE NEGATIVE (NEGATIVE); SPECIFIC GRAVITIY, URINE 1.022 (1.003-1.030); UROBILINOGEN,URINE <=1.0 mg/dL (<=1.0)
[2024-01-12 23:02] LABS: BACTERIA,URINE Moderate /HPF (None Seen); RBC,URINE None Seen /HPF (0-2); SQUAMOUS EPITHELIAL CELL,UR None Seen /LPF (None Seen)
[2024-01-13 01:34] VITALS: BP 115/63; PULSE 58; RESP 18; TEMP 98; O2SAT 98
[2024-01-13] MEDS: HYDROmorphone HCL 2 MG/ML SYRINGE IVP ONE (01:57)
[2024-01-13] MEDS ORDERED: DiphenhydrAMINE HCL 50 MG/ML VIAL IVP ONE (02:45)
[2024-01-13] MEDS: DiphenhydrAMINE HCL 50 MG/ML VIAL IVP ONE (02:58)
[2024-01-13] MEDS: ONDANSETRON HCL 4 MG/2 ML VIAL IVP PRN (04:58)
[2024-01-13 08:15] VITALS: BP 115/58; PULSE 56; RESP 18; TEMP 98; O2SAT 98
[2024-01-13] MEDS: CARVEDILOL 3.125 MG TABLET PO SCH (09:00)
[2024-01-13] MEDS: DOCUSATE SODIUM 100 MG CAPSULE PO SCH (09:00)
[2024-01-13] MEDS ORDERED: CLOPIDOGREL BISULFATE 75 MG TABLET PO SCH (09:00)
[2024-01-13] MEDS: ATORVASTATIN CALCIUM 20 MG TABLET PO SCH (09:53)
[2024-01-13] MEDS: LevETIRAcetam 500 MG TABLET PO SCH (09:53)
[2024-01-13] MEDS: CLOPIDOGREL BISULFATE 75 MG TABLET PO SCH (09:53)
[2024-01-13] MEDS: TOPIRAMATE 100 MG TABLET PO SCH (09:53)
[2024-01-13] MEDS: FUROSEMIDE 20 MG TABLET PO SCH (09:55)
[2024-01-13 10:01] LABS: BASOPHILS % (AUTO) 0.5 % (0.0-2.0); EOSINOPHILS % (AUTO) 1.5 % (1.0-6.0); HEMATOCRIT 33.8 % (36-46); HEMOGLOBIN 11.3 g/dL (12.0-16.0); LYMPHOCYTES # (AUTO) 1.5 K/uL (1.0-4.8); LYMPHOCYTES % (AUTO) 25.9 % (22.0-44.0); MEAN CORPUSCULAR HEMOGLOBIN 30.3 pg (26.0-34.0); MEAN CORPUSCULAR HGB CONC 33.5 G/dL (31.0-37.0); MEAN CORPUSCULAR VOLUME 91 fL (80-100); MONOCYTES # (AUTO) 0.5 K/uL (0.1-1.0); MONOCYTES % (AUTO) 8.7 % (2.0-9.0); NEUTROPHILS # (AUTO) 3.6 K/uL (1.8-7.7); NEUTROPHILS % (AUTO) 63.4 % (40.0-70.0); PLATELET COUNT (AUTO) 219 K/uL (150-450); RED BLOOD CELL COUNT(AUTO) 3.74 MIL/uL (4.00-5.20); RED CELL DISTRIBUTION WIDTH 12.8 % (11.5-14.5); WHITE BLOOD COUNT (AUTO) 5.7 K/uL (4.5-11.0)
[2024-01-13 10:15] LABS: ANION GAP 4 mmol/L (8-16); CARBON DIOXIDE 28 mmol/L (22-29); CHLORIDE 109 mmol/L (98-107); CREATININE 0.49 mg/dL (0.60-1.30); GLOMERULAR FILTR. RATE CALC > 60 mL/min (>60); GLUCOSE,RANDOM 80 mg/dL (70-110); POTASSIUM 4.4 mmol/L (3.5-5.1); SODIUM SERUM 141 mmol/L (136-145); UREA NITROGEN, BLOOD 10 mg/dL (7-18)
[2024-01-13 10:54] VITALS: BP 124/53; PULSE 61; RESP 19; TEMP 97.8; O2SAT 99
[2024-01-13] MEDS ORDERED: NALOXONE HCL 1 MG/ML 2 ML SYRINGE IVP PRN (11:45)
[2024-01-13] MEDS: DiphenhydrAMINE HCL 50 MG/ML VIAL IVP PRN (11:50)
[2024-01-13] MEDS: HYDROmorphone HCL 2 MG/ML SYRINGE IVP PRN (11:50)
[2024-01-13 15:30] VITALS: BP 102/63; PULSE 61; RESP 19; TEMP 97.7; O2SAT 95
[2024-01-13 17:52] VITALS: BP 111/64; PULSE 56; RESP 18
[2024-01-13 20:30] VITALS: BP 101/58; PULSE 67; RESP 18; TEMP 97.7; O2SAT 96
[2024-01-14 00:02] VITALS: BP 128/63; PULSE 69; RESP 18; TEMP 97.8; O2SAT 95
[2024-01-14] MEDS: HEPARIN SODIUM,PORCINE 5,000 UNITS/ML VIAL SQ SCH (00:25)
[2024-01-14 04:10] VITALS: BP 100/58; PULSE 82; RESP 17; TEMP 97.8
[2024-01-14 08:47] VITALS: BP 102/59; PULSE 65; RESP 18; TEMP 97.8; O2SAT 96
[2024-01-14] MEDS: CefTRIAXone 1 GM/DEXTROSE 50 ML IV SCH (11:19)
[2024-01-14 11:58] VITALS: BP 116/50; PULSE 63; RESP 18; TEMP 98.1; O2SAT 95
[2024-01-14 17:21] VITALS: BP 131/49; PULSE 68; RESP 19; TEMP 97.3; O2SAT 97
[2024-01-14 20:55] VITALS: BP 97/60; PULSE 74; RESP 19; TEMP 97.7; O2SAT 99
[2024-01-15] VITALS (7 sets, daily range): BP systolic 91–130; BP diastolic 47–71; PULSE 58–71; RESP 14–18; TEMP 97.8–98.1; O2SAT 96–100
[2024-01-15] MEDS: DENTURE ADHESIVE 68 GM CREAM DT ONE (10:00)
[2024-01-15] MEDS: PredniSONE 20 MG TABLET PO SCH (12:09)
[2024-01-15] MEDS: PROMETHAZINE HCL 12.5 MG RECTAL SUPPOSITORY PR PRN (18:14)
[2024-01-16 08:15] VITALS: BP 138/70; PULSE 72; RESP 18; TEMP 98; O2SAT 97
[2024-01-16] MEDS ORDERED: ALBUTEROL SULFATE 2.5 MG/0.5 ML NEB SOLUTION NEB SCH (10:30)
[2024-01-16 11:21] VITALS: BP 132/62; PULSE 62; RESP 18; TEMP 98; O2SAT 96
[2024-01-16] MEDS ORDERED: ACET-3385 PO (11:46)
[2024-01-16] MEDS ORDERED: PRED-729 PO (11:49)
[2024-01-16] MEDS ORDERED: CEFD300C18 PO (11:49)
[2024-01-16] MEDS ORDERED: AZIT-164 PO (11:49)
[2024-01-16] MEDS: MethylPREDNISolone SOD SUCC 125 MG/2 ML VIAL IVP ONE (12:30)
[2024-01-16] MEDS: AZITHROMYCIN 500 MG/NS 250 ML IV ONE (12:31)
[2024-01-16] MEDS ORDERED: HYDR2TAB37 PO (13:03)
[2024-01-16] MEDS ORDERED: NALO4SPR NASAL (13:04)
[2024-01-16 15:45] VITALS: BP 109/59; PULSE 71; RESP 18; TEMP 97.9; O2SAT 96
== END 2024-01-16 18:45 | disposition home health service (06) | DRG 43 ==
LOC: EMS 19:38 → EDH 21:23 → 5N 01-13 01:23
PROVIDERS: ADMIT Internal Medicine; ATTEND Internal Medicine
DX: G35 Multiple sclerosis (principal); J18.0 Bronchopneumonia, unspecified organism; I42.9 Cardiomyopathy, unspecified; E44.0 Moderate protein-calorie malnutrition; I50.9 Heart failure, unspecified; I69.354 Hemiplegia and hemiparesis following cerebral infarction affecting left non-dominant side; N39.0 Urinary tract infection, site not specified; Z20.822 Contact with and (suspected) exposure to COVID-19; M79.605 Pain in left leg; H54.62 Unqualified visual loss, left eye, normal vision right eye; Z88.5 Allergy status to narcotic agent; G40.909 Epilepsy, unspecified, not intractable, without status epilepticus; M54.9 Dorsalgia, unspecified; B96.20 Unspecified Escherichia coli [E. coli] as the cause of diseases classified elsewhere; Z68.36 Body mass index [BMI] 36.0-36.9, adult; Z88.0 Allergy status to penicillin; Z88.2 Allergy status to sulfonamides; Z88.6 Allergy status to analgesic agent; Z79.02 Long term (current) use of antithrombotics/antiplatelets; J84.10 Pulmonary fibrosis, unspecified
CPT/HCPCS: 0241U; 70450; 70551; 71045; 71250; 72141; 74177; 80048; 80061; 81001; 82962; 83036; 83735; 84484; 85025; 87077; 87086; 87186; 92610; 93005; 97116; 97163; 97167; 97530; 97535; 99285; G0378; J0456; J0696; J1171; J1200; J1644; J2060; J2405; J2919; J7030; J7050; 36415-L1; 36415-TC

== ENCOUNTER 2024-01-17 10:50 | Emergency (ER) | payer MEDICAID ==
[~2024-01-17] VITALS: Ht 144.8 cm; Wt 63.6 kg
[~2024-01-17 10:50] MED LIST changes: +ACET-3385 PO; +AZIT-164 PO; +CEFD300C18 PO; +HYDR2TAB37 PO; +NALO4SPR NASAL; +PRED-729 PO
[2024-01-17 10:59] VITALS: TEMP 98.3
[2024-01-17 11:55] LABS: BASOPHILS % (AUTO) 0.8 % (0.0-2.0); EOSINOPHILS % (AUTO) 1.2 % (1.0-6.0); HEMATOCRIT 42.3 % (36-46); LYMPHOCYTES # (AUTO) 2.2 K/uL (1.0-4.8); MEAN CORPUSCULAR HGB CONC 33.1 G/dL (31.0-37.0); MEAN CORPUSCULAR VOLUME 91 fL (80-100); MONOCYTES # (AUTO) 0.7 K/uL (0.1-1.0); MONOCYTES % (AUTO) 8.8 % (2.0-9.0); NEUTROPHILS # (AUTO) 4.8 K/uL (1.8-7.7); NEUTROPHILS % (AUTO) 61.2 % (40.0-70.0); PLATELET COUNT (AUTO) 312 K/uL (150-450); RED BLOOD CELL COUNT(AUTO) 4.67 MIL/uL (4.00-5.20); RED CELL DISTRIBUTION WIDTH 13.1 % (11.5-14.5); WHITE BLOOD COUNT (AUTO) 7.8 K/uL (4.5-11.0)
[2024-01-17 12:27] LABS: B-TYPE NATRIURETIC PEPTIDE 56 pg/mL (0-100)
[2024-01-17 12:32] LABS: ANION GAP 7 mmol/L (8-16); CALCIUM, TOTAL 8.9 mg/dL (8.8-10.5); CARBON DIOXIDE 25 mmol/L (22-29); CHLORIDE 102 mmol/L (98-107); CREATININE 0.75 mg/dL (0.60-1.30); GLOMERULAR FILTR. RATE CALC > 60 mL/min (>60); GLUCOSE,RANDOM 88 mg/dL (70-110); POTASSIUM 4.2 mmol/L (3.5-5.1); SODIUM SERUM 134 mmol/L (136-145); UREA NITROGEN, BLOOD 27 mg/dL (7-18)
[2024-01-17 12:41] LABS: ALANINE AMINOTRANSFERASE 21 U/L (12-78); ALBUMIN 3.3 g/dL (3.4-5.0); ALKALINE PHOSPHATASE 91 U/L (46-116); ASPARTATE AMINOTRANSFERASE 23 U/L (15-37); BILIRUBIN,TOTAL 0.2 mg/dL (0.1-1.0); TOTAL PROTEIN, SERUM 6.9 g/dL (6.4-8.2)
[2024-01-17 12:42] LABS: TROPONIN I-HIGH SENSITIVITY 7 ng/L (<51)
[2024-01-17] MEDS ORDERED: HYDROmorphone HCL 2 MG/ML SYRINGE IVP ONE (13:00)
[2024-01-17 13:35] VITALS: BP 131/57; PULSE 78; RESP 18; O2SAT 99
[2024-01-17] MEDS: HYDROmorphone HCL 2 MG TABLET PO ONE (13:37)
[2024-01-17] MEDS: DiphenhydrAMINE HCL 25 MG CAPSULE PO ONE (13:37)
== END 2024-01-17 13:49 | disposition home or self-care (01) ==
LOC: EMS 10:50
DX: J18.9 Pneumonia, unspecified organism (principal); G40.909 Epilepsy, unspecified, not intractable, without status epilepticus; G89.29 Other chronic pain; Z88.0 Allergy status to penicillin; Z88.2 Allergy status to sulfonamides; Z88.5 Allergy status to narcotic agent; Z88.6 Allergy status to analgesic agent; Z98.890 Other specified postprocedural states
CPT/HCPCS: 71045; 80053; 83880; 84484; 85025; 93005; 99285; 36415-L1; 36415-TC

== ENCOUNTER 2024-01-18 19:20 | Emergency (ER) | payer MEDICAID ==
[~2024-01-18] VITALS: Ht 170.2 cm; Wt 77.0 kg
[2024-01-18 20:42] LABS: BASOPHILS % (AUTO) 0.5 % (0.0-2.0); EOSINOPHILS % (AUTO) 1.7 % (1.0-6.0); HEMATOCRIT 43.3 % (36-46); HEMOGLOBIN 14.5 g/dL (12.0-16.0); LYMPHOCYTES # (AUTO) 2.1 K/uL (1.0-4.8); LYMPHOCYTES % (AUTO) 25.9 % (22.0-44.0); MEAN CORPUSCULAR HEMOGLOBIN 30.2 pg (26.0-34.0); MEAN CORPUSCULAR HGB CONC 33.5 G/dL (31.0-37.0); MEAN CORPUSCULAR VOLUME 90 fL (80-100); MONOCYTES # (AUTO) 0.6 K/uL (0.1-1.0); MONOCYTES % (AUTO) 7.4 % (2.0-9.0); NEUTROPHILS # (AUTO) 5.1 K/uL (1.8-7.7); NEUTROPHILS % (AUTO) 64.5 % (40.0-70.0); PLATELET COUNT (AUTO) 326 K/uL (150-450); RED CELL DISTRIBUTION WIDTH 13.3 % (11.5-14.5); WHITE BLOOD COUNT (AUTO) 7.9 K/uL (4.5-11.0)
[2024-01-18 20:50] LABS: ANION GAP 8 mmol/L (8-16); CARBON DIOXIDE 24 mmol/L (22-29); CHLORIDE 103 mmol/L (98-107); CREATININE 0.79 mg/dL (0.60-1.30); GLOMERULAR FILTR. RATE CALC > 60 mL/min (>60); GLUCOSE,RANDOM 97 mg/dL (70-110); POTASSIUM 4.7 mmol/L (3.5-5.1); SODIUM SERUM 135 mmol/L (136-145); UREA NITROGEN, BLOOD 20 mg/dL (7-18)
[2024-01-18 21:00] LABS: TROPONIN I-HIGH SENSITIVITY 6 ng/L (<51)
[2024-01-18] MEDS: GuaiFENesin/D-METHORPHAN [SUGAR-FREE] 200-20MG/10 ML SYRUP UDCUP PO ONE (21:33)
[2024-01-18] MEDS: ACETAMINOPHEN 500 MG TABLET PO ONE (21:33)
[2024-01-18] MEDS: ONDANSETRON HCL 4 MG/2 ML VIAL IVP ONE (21:33)
[2024-01-18] MEDS: DiphenhydrAMINE HCL 50 MG/ML VIAL IVP ONE (21:33)
[2024-01-18 21:54] VITALS: BP 119/68; PULSE 72; RESP 17; TEMP 97.3; O2SAT 96
== END 2024-01-18 22:04 | disposition home or self-care (01) ==
LOC: EMS 19:20
DX: J40 Bronchitis, not specified as acute or chronic (principal); G40.909 Epilepsy, unspecified, not intractable, without status epilepticus; Z88.0 Allergy status to penicillin; Z88.2 Allergy status to sulfonamides; Z88.6 Allergy status to analgesic agent; Z88.5 Allergy status to narcotic agent; Z98.890 Other specified postprocedural states
CPT/HCPCS: 99285; 96374; 71045; 96375; 80048; 84484; 85025; 36415; 93005; J1200; J2405

== ENCOUNTER 2024-01-20 19:04 | Emergency (ER) | payer MEDICAID ==
[~2024-01-20] VITALS: Ht 144.8 cm; Wt 68.2 kg
[2024-01-20 19:25] VITALS: TEMP 98.7
[2024-01-20 21:53] LABS: ANION GAP 11 mmol/L (8-16); CALCIUM, TOTAL 8.2 mg/dL (8.8-10.5); CARBON DIOXIDE 22 mmol/L (22-29); CHLORIDE 105 mmol/L (98-107); CREATININE 0.52 mg/dL (0.60-1.30); GLOMERULAR FILTR. RATE CALC > 60 mL/min (>60); GLUCOSE,RANDOM 95 mg/dL (70-110); POTASSIUM 4.2 mmol/L (3.5-5.1); SODIUM SERUM 138 mmol/L (136-145); UREA NITROGEN, BLOOD 13 mg/dL (7-18)
[2024-01-20 21:59] LABS: ALANINE AMINOTRANSFERASE 24 U/L (12-78); ALKALINE PHOSPHATASE 111 U/L (46-116); ASPARTATE AMINOTRANSFERASE 18 U/L (15-37); BILIRUBIN,TOTAL 0.1 mg/dL (0.1-1.0); TOTAL PROTEIN, SERUM 6.3 g/dL (6.4-8.2)
[2024-01-20 22:00] LABS: TROPONIN I-HIGH SENSITIVITY 8 ng/L (<51)
[2024-01-20 22:11] LABS: BASOPHILS % (AUTO) 0.4 % (0.0-2.0); EOSINOPHILS % (AUTO) 1.3 % (1.0-6.0); HEMATOCRIT 41.6 % (36-46); HEMOGLOBIN 13.7 g/dL (12.0-16.0); LYMPHOCYTES # (AUTO) 1.9 K/uL (1.0-4.8); LYMPHOCYTES % (AUTO) 25.8 % (22.0-44.0); MEAN CORPUSCULAR HEMOGLOBIN 29.8 pg (26.0-34.0); MEAN CORPUSCULAR HGB CONC 32.9 G/dL (31.0-37.0); MEAN CORPUSCULAR VOLUME 91 fL (80-100); MONOCYTES # (AUTO) 0.6 K/uL (0.1-1.0); MONOCYTES % (AUTO) 8.1 % (2.0-9.0); NEUTROPHILS # (AUTO) 4.7 K/uL (1.8-7.7); NEUTROPHILS % (AUTO) 64.4 % (40.0-70.0); PLATELET COUNT (AUTO) 292 K/uL (150-450); RED BLOOD CELL COUNT(AUTO) 4.59 MIL/uL (4.00-5.20); RED CELL DISTRIBUTION WIDTH 13.5 % (11.5-14.5); WHITE BLOOD COUNT (AUTO) 7.3 K/uL (4.5-11.0)
[2024-01-20] MEDS: DiphenhydrAMINE HCL 50 MG/ML VIAL IVP ONE (22:42)
[2024-01-20 23:28] VITALS: BP 108/65; PULSE 70; RESP 18; O2SAT 97
[2024-01-21] MEDS: DiphenhydrAMINE HCL 50 MG/ML VIAL IVP ONE (00:15)
== END 2024-01-21 00:58 | disposition home or self-care (01) ==
LOC: EMS 19:04
DX: R07.89 Other chest pain (principal); Z98.890 Other specified postprocedural states; G40.909 Epilepsy, unspecified, not intractable, without status epilepticus; Z88.0 Allergy status to penicillin; Z88.2 Allergy status to sulfonamides; Z88.5 Allergy status to narcotic agent; Z88.6 Allergy status to analgesic agent
CPT/HCPCS: 99285; 96374; 71045; 80053; 84484; 85025; 36415; 93005; 96376; J1200 ×2

== ENCOUNTER 2024-01-23 13:41 | Emergency (ER) | payer MEDICAID ==
[~2024-01-23] VITALS: Ht 144.8 cm; Wt 68.2 kg
[2024-01-23 14:22] VITALS: TEMP 98.8
[2024-01-23] MEDS ORDERED: PROM25SU58 PR ×2 (14:41→15:27)
[2024-01-23] MEDS ORDERED: BACL10TA PO (14:41)
[2024-01-23 14:55] LABS: BASOPHILS % (AUTO) 0.7 % (0.0-2.0); HEMATOCRIT 41.1 % (36-46); HEMOGLOBIN 13.6 g/dL (12.0-16.0); LYMPHOCYTES # (AUTO) 1.5 K/uL (1.0-4.8); MEAN CORPUSCULAR HEMOGLOBIN 29.9 pg (26.0-34.0); MEAN CORPUSCULAR VOLUME 91 fL (80-100); MONOCYTES # (AUTO) 0.5 K/uL (0.1-1.0); MONOCYTES % (AUTO) 9.4 % (2.0-9.0); NEUTROPHILS # (AUTO) 3.1 K/uL (1.8-7.7); NEUTROPHILS % (AUTO) 58.9 % (40.0-70.0); PLATELET COUNT (AUTO) 262 K/uL (150-450); RED BLOOD CELL COUNT(AUTO) 4.54 MIL/uL (4.00-5.20); RED CELL DISTRIBUTION WIDTH 13.5 % (11.5-14.5); WHITE BLOOD COUNT (AUTO) 5.3 K/uL (4.5-11.0)
[2024-01-23] MEDS: ONDANSETRON HCL 4 MG/2 ML VIAL IVP ONE (15:08)
[2024-01-23] MEDS: LevETIRAcetam 1,000 MG in DEXTROSE 5%-WATER 100 ML IV ONE (15:08)
[2024-01-23] MEDS: SODIUM CHLORIDE 0.9% 1,000 ML IV ONE (15:08)
[2024-01-23] MEDS: DiphenhydrAMINE HCL 50 MG/ML VIAL IVP ONE ×2 (15:09→16:21)
[2024-01-23 15:13] LABS: ANION GAP 7 mmol/L (8-16); CALCIUM, TOTAL 8.6 mg/dL (8.8-10.5); CARBON DIOXIDE 26 mmol/L (22-29); CHLORIDE 107 mmol/L (98-107); GLOMERULAR FILTR. RATE CALC > 60 mL/min (>60); GLUCOSE,RANDOM 99 mg/dL (70-110); LIPASE 61 U/L (16-77); POTASSIUM 4.5 mmol/L (3.5-5.1); SODIUM SERUM 140 mmol/L (136-145); UREA NITROGEN, BLOOD 10 mg/dL (7-18)
[2024-01-23 15:22] LABS: TROPONIN I-HIGH SENSITIVITY 5 ng/L (<51)
[2024-01-23] MEDS ORDERED: LEVE500T8 PO (15:27)
[2024-01-23] MEDS ORDERED: ONDA-104 PO (15:27)
[2024-01-23] MEDS ORDERED: MECL-302 PO (15:27)
[2024-01-23] MEDS ORDERED: TOPI100T37 PO (15:27)
[2024-01-23 16:33] VITALS: BP 122/75; PULSE 74; RESP 18; O2SAT 98
== END 2024-01-23 16:49 | disposition home or self-care (01) ==
LOC: EMS 13:41
DX: R10.9 Unspecified abdominal pain (principal); R11.2 Nausea with vomiting, unspecified; R53.1 Weakness; I11.0 Hypertensive heart disease with heart failure; I50.9 Heart failure, unspecified; Z88.0 Allergy status to penicillin; Z88.2 Allergy status to sulfonamides; Z88.5 Allergy status to narcotic agent; Z88.6 Allergy status to analgesic agent; Z79.02 Long term (current) use of antithrombotics/antiplatelets; Z79.52 Long term (current) use of systemic steroids; Z86.73 Personal history of transient ischemic attack (TIA), and cerebral infarction without residual deficits; Z79.899 Other long term (current) drug therapy
CPT/HCPCS: 99285; 96365; 96375; 71045; 80048; 83690; 84484; 85025; 36415; 93005; 96376; J0712; J1200; J2405; J7060; J7030

== ENCOUNTER 2024-01-23 21:07 | Emergency (ER) | payer MEDICAID ==
[~2024-01-23] VITALS: Ht 157.5 cm; Wt 54.5 kg
[~2024-01-23 21:07] MED LIST changes: +BACL10TA PO; +ONDA-104 PO; +PROM25SU58 PR
[2024-01-23 21:09] VITALS: BP 119/79; TEMP 98; O2SAT 98
[2024-01-23 21:59] LABS: BASOPHILS % (AUTO) 0.9 % (0.0-2.0); EOSINOPHILS % (AUTO) 2.4 % (1.0-6.0); HEMATOCRIT 40.5 % (36-46); HEMOGLOBIN 13.5 g/dL (12.0-16.0); LYMPHOCYTES # (AUTO) 2.1 K/uL (1.0-4.8); LYMPHOCYTES % (AUTO) 36.5 % (22.0-44.0); MEAN CORPUSCULAR HEMOGLOBIN 30.2 pg (26.0-34.0); MEAN CORPUSCULAR HGB CONC 33.4 G/dL (31.0-37.0); MEAN CORPUSCULAR VOLUME 91 fL (80-100); MONOCYTES # (AUTO) 0.6 K/uL (0.1-1.0); MONOCYTES % (AUTO) 10.3 % (2.0-9.0); NEUTROPHILS # (AUTO) 2.8 K/uL (1.8-7.7); NEUTROPHILS % (AUTO) 49.9 % (40.0-70.0); PLATELET COUNT (AUTO) 251 K/uL (150-450); RED BLOOD CELL COUNT(AUTO) 4.48 MIL/uL (4.00-5.20); RED CELL DISTRIBUTION WIDTH 13.1 % (11.5-14.5); WHITE BLOOD COUNT (AUTO) 5.7 K/uL (4.5-11.0)
[2024-01-23 22:09] LABS: ANION GAP 9 mmol/L (8-16); CALCIUM, TOTAL 8.4 mg/dL (8.8-10.5); CARBON DIOXIDE 24 mmol/L (22-29); CHLORIDE 107 mmol/L (98-107); GLOMERULAR FILTR. RATE CALC > 60 mL/min (>60); GLUCOSE,RANDOM 82 mg/dL (70-110); POTASSIUM 4.3 mmol/L (3.5-5.1); SODIUM SERUM 140 mmol/L (136-145); UREA NITROGEN, BLOOD 9 mg/dL (7-18)
[2024-01-23 22:10] LABS: LIPASE 72 U/L (16-77)
[2024-01-23 22:17] LABS: TROPONIN I-HIGH SENSITIVITY 8 ng/L (<51)
[2024-01-24] MEDS: METOCLOPRAMIDE HCL 5 MG/ML 2 ML VIAL IVP ONE (04:34)
[2024-01-24] MEDS: SODIUM CHLORIDE 0.9% 1,000 ML IV ONE (04:34)
[2024-01-24] MEDS: DiphenhydrAMINE HCL 50 MG/ML VIAL IVP ONE ×2 (04:34→06:13)
[2024-01-24 05:37] LABS: APPEARANCE,URINE CLEAR (CLEAR); BILIRUBIN,URINE NEGATIVE (NEGATIVE); COLOR,URINE COLORLESS (YELLOW); GLUCOSE, URINE (UA) NEGATIVE (NEGATIVE); KETONES,URINE NEGATIVE (NEGATIVE); LEUKOCYTE ESTERASE ,URINE NEGATIVE (NEGATIVE); NITRATE,URINE NEGATIVE (NEGATIVE); OCCULT BLOOD,URINE NEGATIVE (NEGATIVE); PROTEIN,URINE NEGATIVE (NEGATIVE); SPECIFIC GRAVITIY, URINE 1.009 (1.003-1.030); UROBILINOGEN,URINE <=1.0 mg/dL (<=1.0)
[2024-01-24 06:46] VITALS: PULSE 60; RESP 16
== END 2024-01-24 06:46 | disposition home or self-care (01) ==
LOC: EMS 21:08
DX: R11.2 Nausea with vomiting, unspecified (principal); R10.84 Generalized abdominal pain; I11.0 Hypertensive heart disease with heart failure; G40.909 Epilepsy, unspecified, not intractable, without status epilepticus; Z88.0 Allergy status to penicillin; Z88.2 Allergy status to sulfonamides; Z88.5 Allergy status to narcotic agent; Z88.6 Allergy status to analgesic agent
CPT/HCPCS: 99285; 80048; 81003; 83690; 84484; 85025; 36415; 93005; 96374; 96361; 96375; 74018; 96376; J1200; J2765; J7030